=== PATIENT | female | born 1965 | race Caucasian/White ===

== ENCOUNTER 2019-11-21 00:31 | Day surgery (SDC) | payer BC, SELFPAY ==
[2019-11-14 13:20] VITALS: BMI 26.9
[2019-11-21 12:34] VITALS: BP 139/92; PULSE 76; RESP 16; TEMP 36.6; O2SAT 100
[2019-11-21] MEDS: LACTATED RINGERS 1,000 ML 150 ML IV CONT (12:50)
--- NOTE | 2019-11-21 13:00 | WPDANESEPPF ---
Anes - Initial Pre Proc Eval Procedure: Operation Date: 11/21/19 13:30 Proposed Procedures p Screening Colonoscopy - Osiel Charles MD Date/Time: 11/21/19 13:00 Surgeon: Osiel Charles MD Pre Op Diagnosis: Hx Of Polyps Patient Data Age: 54 Gender: F Height: 5 ft 7 in Weight: 76.7 kg Last Vital Signs Temp 36.6 C 11/21/19 12:34 Pulse 76 11/21/19 12:34 Resp 16 11/21/19 12:34 BP 139/92 H 11/21/19 12:34 Pulse Ox 100 11/21/19 12:34 Allergies Allergy/AdvReac Type Severity Reaction Status Date / Time No Known Allergies Allergy Unverified 11/21/19 12:33 Home Medications Medication Instructions Recorded Confirmed Type clonazepam 0.5 mg tablet 0.5 mg PO DAILY 10/23/19 History enalapril maleate 10 mg tablet 10 mg PO DAILY #1 tablet 10/23/19 Rx hydrochlorothiazide 25 mg tablet 25 mg PO DAILY 10/23/19 History peg 3350-electrolytes 236 240 ml PO Q10M #4000 ml 10/23/19 Rx gram-22.74 gram-6.74 gram-5.86 gram solution pravastatin 40 mg tablet 40 mg PO DAILY #1 tablet 10/23/19 Rx Patient hx anesthesia problems: none Family hx anesthesia problems: none PMFSH Past Medical History Medical History (Updated 11/21/19 @ 13:04 by Donald Pennington MD) HTN (hypertension) Hyperlipidemia Overweight Surgical History Surgical History (Updated 11/21/19 @ 13:05 by Donald Pennington MD) History of shoulder surgery History of total hip arthroplasty Social History Social History Gender identity (if verbalized by the patient): Female Anes - Eval Final PreProcedure Day of Procedure 11/21/19 13:00 Patient weight: overweight Heart: regular rate and rhythm Lungs: clear to auscultation Airway: Mallampati scale class II Neurological: alert and oriented Last oral intake: >/= 8 hours ASA classification: II Emergent: no Anesthetic plan: proceed Anesthesia type and monitoring: general GIVS and standard monitoring Informed Consent: The patient's anesthetic plan and its attendant risks and benefits were discussed with the patient/family/POA. Questions were solicited and answers provided to the satisfaction of the patient/family/POA.
--- NOTE | 2019-11-21 13:43 | PM.HPGS ---
History of Present Illness History of Present Illness Consent: Risks, benefits, and alternatives have been discussed and questions answered. Patient agrees to proceed with procedure. Chief complaint: Hx Of Polyps Narrative: Elizabeth Mcgrath is a 54 year old female with history of several polyps removed 2 years ago, here for follow up Review of Systems Constitutional: Constitutional: Denies headache(s) and Denies weakness Eyes: Eyes: Denies blurry vision ENT: Reports Normal hearing present, Denies headache(s) and Denies neck pain Cardiovascular: Cardiovascular: Denies chest pain and Denies dyspnea Respiratory: Respiratory: Denies dyspnea Gastrointestinal: Gastrointestinal: Reports no additional gastrointestinal complaints Genitourinary: Genitourinary: Denies dysuria Musculoskeletal: Musculoskeletal: Denies neck pain Integumentary/Breasts: Skin/Breast: Denies dry skin Neurologic: Reports Normal hearing present, Denies headache(s) and Denies weakness Psychiatric: Psychiatric: Denies anxiety Endocrine: Endocrine: Denies change in body appearance Hematologic/Lymphatic: Hematologic/Lymphatic: Denies easy bleeding Allergic/Immunologic: Allergic/Immunologic: Denies urticaria PMF Past Medical History Medical History (Updated 11/21/19 @ 13:44 by Osiel Charles MD) Adenomatous colon polyp HTN (hypertension) Hyperlipidemia Overweight Surgical History Surgical History (Updated 11/21/19 @ 13:05 by Donald Pennington MD) History of shoulder surgery History of total hip arthroplasty Social History Social History Gender identity (if verbalized by the patient): Female Meds Home Medications and Allergies Home Medications Medication Instructions Recorded Confirmed Type clonazepam 0.5 mg tablet 0.5 mg PO DAILY 10/23/19 History enalapril maleate 10 mg tablet 10 mg PO DAILY #1 tablet 10/23/19 Rx hydrochlorothiazide 25 mg tablet 25 mg PO DAILY 10/23/19 History peg 3350-electrolytes 236 240 ml PO Q10M #4000 ml 10/23/19 Rx gram-22.74 gram-6.74 gram-5.86 gram solution pravastatin 40 mg tablet 40 mg PO DAILY #1 tablet 10/23/19 Rx Allergies Allergy/AdvReac Type Severity Reaction Status Date / Time No Known Allergies Allergy Unverified 11/21/19 12:33 Vital Signs Vital Signs - 24 hr 11/21/19 12:34 Temperature 97.8 F Pulse Rate 76 Respiratory Rate 16 Blood Pressure 139/92 H Pulse Oximetry 100 Exam Const: General: comfortable and no acute distress HENMT: General nose exam: Normal nares present Eyes: General: appearance normal, both eyes and all related structures Neck: Neck: no JVD Resp: Auscultation: clear to auscultation bilaterally Cardio: Rate: regular rate Rhythm: regular rhythm GI: Inspection: non-distended GI Palp: Yes Soft to palpation Skin: General skin exam: normal color Neuro: General: gait normal Speech: normal speech Extrem: General: normal to inspection Psych: Mental Status: mental status grossly normal Assessment and Plan Assessment and plan (1) Adenomatous colon polyp: Code(s): D12.6 - Benign neoplasm of colon, unspecified Status: Acute Assessment and Plan: will proceed with colonoscopy (2) HTN (hypertension): Code(s): I10 - Essential (primary) hypertension Status: Acute
[2019-11-21 14:14] VITALS: BP 106/76; PULSE 87; RESP 18; O2SAT 99
[2019-11-21 14:24] VITALS: BP 125/89; PULSE 74; RESP 18; O2SAT 99
[2019-11-21 14:34] VITALS: BP 116/82; PULSE 77; RESP 18; O2SAT 99
== END 2019-11-21 14:58 | disposition home or self-care (01) ==
PROVIDERS: Visit Provider Internal Medicine Gastroenterology
PROC: 0DJD8ZZ Inspection of Lower Intestinal Tract, Via Natural or Artificial Opening Endoscopic (ICD-10-PCS; CPT 45378; principal; 2019-11-21 13:30)
DX: Z12.11 Encounter for screening for malignant neoplasm of colon (principal); D12.3 Benign neoplasm of transverse colon; K57.30 Diverticulosis of large intestine without perforation or abscess without bleeding; K64.8 Other hemorrhoids; I10 Essential (primary) hypertension; E78.5 Hyperlipidemia, unspecified
CPT/HCPCS: 45380; 88305; J2704; J7120

== ENCOUNTER 2021-03-18 10:00 | Emergency (ER) | payer BC, SELFPAY ==
[2021-03-18] VITALS (7 sets, daily range): BP systolic 129–167; BP diastolic 83–116; PULSE 75–116; RESP 13–21; TEMP 36.3; O2SAT 97–100
--- NOTE | ~2021-03-18 | XR_ITS ---
EXAMINATION: XR chest 2V EXAM DATE: 03/18/2021 10:33 INDICATION: Chest pain and shortness of breath and dizziness. TECHNIQUE: Frontal and lateral projections of the chest obtained and reviewed. Comparison is made to prior examination from 03/22/2012. FINDINGS: The lungs are clear. There are no pleural effusions. The cardiomediastinal silhouette is within normal limits. There is no pneumothorax suspected. The bones and soft tissues are unremarkab le. IMPRESSION: No acute cardiopulmonary findings. Reviewed, dictated and finalized at location B.
--- NOTE | 2021-03-18 10:11 | ECG_ITS ---
Measurements Intervals [place] Rate: 103 P: 16 WV: 148 QRS: -4 QRSD: 90 T: 1 QT: 325 QTc: 427 Interpretive Statements SINUS TACHYCARDIA BORDERLINE R WAVE PROGRESSION, ANTERIOR LEADS INFERIOR INFARCT, AGE INDETERMINATE ABNORMAL ECG Electronically Signed On 03-18-2021 15:52:40 CDT by Sixto Hernandez D.O.
[2021-03-18 10:42] LABS: Basophils Absolute Auto 0.1 K/mm3 (0.0-0.1); Basophils Percent Auto 0.6 % (0.2-1.2); Eosinophils Absolute Auto 0.2 K/mm3 (0-0.3); Eosinophils Percent Auto 1.8 % (0-4.4); Hematocrit 40.3 % (37.0-47.0); Hemoglobin 13.3 g/dL (12.0-15.0); Immature Granulocyte Absolute 0.02 K/mm3 (0.00-0.031); Immature Granulocyte Percent A 0.2 % (0-0.5); Lymphocytes Absolute Auto 2.29 K/mm3 (0.9-3.2); Lymphocytes Percent Auto 27.4 % (18.3-44.2); Mean Platelet Volume 9.3 fl (7.4-10.4); Monocytes Absolute Auto 0.3 K/mm3 (0.1-0.6); Monocytes Percent Auto 4.1 % (2.6-8.5); Neutrophils Absolute Auto 5.5 K/mm3 (1.3-6.7); Neutrophils Percent Auto 65.9 % (45.5-73.1); Platelet Count Result 448 k/mm3 (150-375); Red Blood Count 4.58 M/mm3 (4.2-5.4); Red Cell Distribution Width 13.3 % (11.5-14.5); White Blood Count 8.4 K/mm3 (4.5-10.0)
[2021-03-18 10:56] LABS: Anion Gap 15 mmol/L (8-16); Blood Urea Nitrogen 29 mg/dL (7-17); Calcium 10.3 mg/dL (8.4-10.2); Carbon Dioxide 19 mmol/L (22-30); Chloride 107 mmol/L (98-107); Estimated CRCL calculation 34 ml/min; Estimated Glomerular Filt Rate 33; Glucose 117 mg/dL (65-105); Potassium 5.1 mmol/L (3.4-5.0); Sodium 141 mmol/L (137-145)
[2021-03-18 11:06] LABS: Troponin I < 0.012 ng/mL (0.000-0.034)
[2021-03-18] MEDS: ASPIRIN 81 MG CHEWABLE TABLET 324 MG PO (11:31)
[2021-03-18 12:23] LABS: INR 1.1; Partial Thromboplastin Time 24.7 SECONDS (22.3-36.8); Prothrombin Time 14.5 Seconds (11.1-14.7)
--- NOTE | 2021-03-18 13:15 | PC.NURSE ---
Pt requesting pain medication for h/a. EDP Dr Flanagan made aware.
[2021-03-18 13:28] LABS: Amphetamine Screen Urine Negative (Negative); Barbiturate Screen Urine Negative (Negative); Benzodiazepines Screen Urine Negative (Negative); Cannabinoid Screen Urine Negative (Negative); Cocaine Screen Urine Negative (Negative); Methadone Screen Urine Negative (Negative); Opiate Screen Urine Negative (Negative); Phencyclidine Screen Urine Negative (Negative)
[2021-03-18] MEDS: HALOPERIDOL LACTATE 5 MG/ML VIAL IV PUSH (13:42)
[2021-03-18] MEDS: diphenhydrAMINE HCl INJ 50 MG/ML VIAL 25 MG IV PUSH (13:42)
[2021-03-18 13:57] LABS: Troponin I < 0.012 ng/mL (0.000-0.034)
--- NOTE | 2021-03-18 13:59 | ED.GENADULT ---
HPI - General Adult General Chief complaint: Unspecified Stated complaint: chest pain, chills Time Seen by Provider: 03/18/21 12:24 Source: patient Mode of arrival: ambulatory Limitations: no limitations History of Present Illness HPI narrative: 55-year-old female Presents with a number of complaints She is experiencing chest pain and a shaky feeling She feels tingly all over and like her toes are numb She has a posterior headache dizziness She reports that she was hospitalized at [facility] for recently for similar issues, discharged March 06, and feels like she is just never gotten better, that nobody figured out what was wrong with her, and that nobody is doing anything for her. She is supposed to be followed up with a stress test and a neurology appointment as outpatients which were arranged at the time of her discharge She says that at that time she was taken to the hospital by EMS because of chest pain She says that once there she was awake and alert to everything but could not move her body She continues that she was admitted to the ICU for a day and a half but to the best of her recollection all that happened was people came in and out of the room to check on her, and that it was only after she was moved out to a floor that she was able to again start moving around She is not aware of any diagnostic testing or therapeutic measures which were taken during the hospitalization Got the records from [place] and reviewed them It looks like part of the initial assessment was that she might have overdosed on Xanax and Klonopin but subsequently it looks like it was clarified that they thought she maybe only took 1 extra Xanax tablet Looking at the nurse's notes it looks like she was volitional and that she would keep her eyes tightly closed but was nonverbal She had a head CT and abdominal CT and labs which were unremarkable She was also seen by psych and they made no diagnosis In the ED she both received fluids for hypotension and at some point received hydralazine the ordering is unclear to me Ultimately appears that her symptoms were chalked up to complex migraines Related Data Home Medications Medication Instructions Recorded Confirmed clonazepam 0.5 mg tablet 0.5 mg PO DAILY 10/23/19 hydrochlorothiazide 25 mg tablet 25 mg PO DAILY 10/23/19 Allergies Allergy/AdvReac Type Severity Reaction Status Date / Time No Known Allergies Allergy Unverified 11/21/19 12:33 Review of Systems Constitutional: Constitutional: Denies chills, Reports fatigue, Denies fever(s), Reports headache(s), Reports lethargy, Reports malaise, Reports poor appetite and Reports weakness Eyes: Eyes: Reports no additional eye complaints and Denies change in vision ENT: Reports dizziness, Reports headache(s) and Denies sore throat Cardiovascular: Cardiovascular: Reports chest pain Respiratory: Respiratory: Denies cough and Denies dyspnea Gastrointestinal: Gastrointestinal: Denies abdominal pain, Denies diarrhea, Reports nausea and Denies vomiting Genitourinary: Genitourinary: Denies urinary frequency and Denies dysuria Musculoskeletal: Musculoskeletal: Reports myalgias, Denies deformity, Denies arthralgias, Denies joint swelling and Reports numbness Integumentary/Breasts: Skin/Breast: Denies rash and Denies wounds Neurologic: Reports headache(s), Denies focal weakness, Reports numbness, Reports paresthesias and Reports tremor(s) Psychiatric: Psychiatric: Reports no additional psychiatric complaints Endocrine: Endocrine: Reports no additional endocrine complaints Hematologic/Lymphatic: Hematologic/Lymphatic: Reports no additional hematologic/lymphatic complaints Allergic/Immunologic: Allergic/Immunologic: Reports no additional allergic/immunologic complaints [facility] Past Medical History Medical History (Updated 03/18/21 @ 15:54 by Terry Flanagan MD) Adenomatous colon polyp HTN (hypertension) Hyperlipidemia Overwei
[2021-03-18 16:15] LABS: Parathyroid Intact 72.7 pg/mL (7.5-53.5)
== END 2021-03-18 16:16 | disposition home or self-care (01) ==
PROVIDERS: Emergency Medicine; Emergency Provider Emergency Medicine; PCP Family Medicine Sports Medicine
DX: R42 Dizziness and giddiness (principal); R20.2 Paresthesia of skin; R51.9 Headache, unspecified; Z86.010 Personal history of colon polyps; E78.5 Hyperlipidemia, unspecified; I10 Essential (primary) hypertension; E66.3 Overweight; Z68.25 Body mass index [BMI] 25.0-25.9, adult; Z96.649 Presence of unspecified artificial hip joint; R00.0 Tachycardia, unspecified; R94.31 Abnormal electrocardiogram [ECG] [EKG]
CPT/HCPCS: 36415; 71046; 80048; 80307; 82384; 83970; 84443; 84484; 85025; 85610; 85730; 93005; 96374; 96375; 99284; A9270; J1200; J1630

== ENCOUNTER 2022-09-02 13:07 | Outpatient (CLI) | payer BC, SELFPAY ==
--- NOTE | ~2022-09-02 | XR_ITS ---
XR lumbar spine 2-3V DATE: 09/02/2022 13:29 INDICATION: Low back pain TECHNIQUE: AP, lateral, coned lateral lumbosacral views COMPARISON: None FINDINGS: Moderate degenerative disc disease at T11-12. The included lower thoracic and lumbar pedicles are int act. No fracture or bone destruction of the lumbar spine. Normal alignment. No spondylolisthesis. There is moderately severe degenerative disc disease at L5-S1. The lumbar interspaces are well preser jacquie. The sacroiliac joints appear normal. Prominent callus is noted at a posterior right 10th rib fracture IMPRESSION: Moderately severe degenerative disease at L5-S1 Status post left total hip arthroplasty Reviewed, dictated and finalized at location B. CODERS
[2022-09-02 13:59] LABS: Hematocrit 37.7 % (37.0-47.0); Hemoglobin 12.1 g/dL (12.0-15.0); Mean Corpuscular HGB Conc 32.1 g/dl (32-36); Mean Corpuscular Volume 93.3 fl (80-100); Platelet Count Result 390 k/mm3 (150-375); Red Blood Count 4.04 M/mm3 (4.2-5.4); White Blood Count 7.6 K/mm3 (4.5-10.0)
[2022-09-02 14:07] LABS: Appearance Urine Clear (Clear); Bilirubin Urine Negative (Negative); Blood Urine Negative (Negative); Color Urine Yellow (Yellow); Glucose Urine UA Negative (Negative); Ketones Urine Negative (Negative); Leukocyte Esterase Ur 2+ LEU/UL (Negative); Nitrate Urine Negative (Negative); Protein Urine Negative (Negative); Urobilinogen Urine 0.2 mg/dL (<2.0); pH Urine 5.5 (5.0-9.0)
[2022-09-02 14:13] LABS: Hemoglobin A1C 5.1 % (<5.7)
[2022-09-02 14:24] LABS: Bacteria Urine 2+ /hpf; Mucus Urine Rare /lpf; Squamous Epithelial Cell Urine Rare /hpf (Few); WBC Urine 31-50 /hpf
[2022-09-02 14:33] LABS: Alanine Aminotransferase 22 U/L (6-35); Albumin Level 4.8 g/dL (3.5-5.1); Alkaline Phosphatase 56 U/L (38-126); Anion Gap 12 mmol/L (8-16); Aspartate Amino Transferase 26 U/L (14-36); Bilirubin,Total 0.4 mg/dL (0.2-1.3); Blood Urea Nitrogen 24 mg/dL (7-17); Calcium 9.9 mg/dL (8.4-10.2); Carbon Dioxide 29 mmol/L (22-30); Chloride 97 mmol/L (98-107); Cholesterol 269 mg/dL (0-200); Estimated Glomerular Filt Rate 51; Glucose 92 mg/dL (65-110); HDL Direct 60 mg/dL; Potassium 3.9 mmol/L (3.4-5.0); Sodium 138 mmol/L (137-145); Triglycerides 235 mg/dL (<150)
[2022-09-02 14:42] LABS: Add Urine Microscopic? YES
[2022-09-02 14:43] LABS: LDL Cholesterol Direct 132 mg/dL
[2022-09-08 10:36] LABS: Vitamin D 1,25 (OH)2 Total 14 pg/mL (18-72); Vitamin D2 1,25 (OH)2 <8 pg/mL; Vitamin D3 1,25 (OH)2 14 pg/mL
== END 2022-09-02 13:08 | disposition home or self-care (01) ==
PROVIDERS: PCP Internal Medicine; Visit Provider Internal Medicine
DX: Z00.00 Encounter for general adult medical examination without abnormal findings (principal); I10 Essential (primary) hypertension; G62.9 Polyneuropathy, unspecified; F41.9 Anxiety disorder, unspecified; M54.50 Low back pain, unspecified; G89.29 Other chronic pain
CPT/HCPCS: 36415; 72100; 80053; 80061; 81001; 82306; 82607; 82652; 83036; 84443; 85027; 87077; 87086; 87186

== ENCOUNTER 2022-09-23 08:02 | Outpatient (CLI) | payer BC, SELFPAY ==
--- NOTE | ~2022-09-23 | MR_ITS ---
EXAMINATION: MR lumbar spine wo con DATE: 09/23/2022 08:50 INDICATION: Severe low back pain. TECHNIQUE: Magnetic resonance imaging (MRI) of the lumbar spine was performed without intravenous con trast. Sequences included sagittal T2-weighted FSE, sagittal T2-weighted FS FSE, sagittal T1-weighted FSE, and axial T2-weighted FSE. COMPARISON: Lumbar spine radiograph 09/02/2022. FINDINGS: There is 4 degrees levocurvature of lumbar spine. Vertebral body heights are normal. There is mildly decreased disc height at T11-T12 and moderately decreased disc height at L5-S1 with endplat e remodeling. The distal spinal cord signal intensity is normal. The conus medullaris is at L2. The f ollowing disc levels are specifically discussed: L1-L2: The disc does not extend beyond the endplate margin. There is mild bilateral facet joint osteo arthritis. There is no neural foraminal stenosis. There is no central canal stenosis. L2-L3: The disc does not extend beyond the endplate margin. There is mild bilateral facet joint osteo arthritis. There is no neural foraminal stenosis. There is no central canal stenosis. L3-L4: The disc is bulging. There is moderate bilateral facet joint osteoarthritis. There is mild albina ateral neural foraminal stenosis. There is no central canal stenosis. L4-L5: The disc is bulging and has an annular fissure. There is mild bilateral facet joint osteoarthr itis. There is mild bilateral neural foraminal stenosis. There is mild central canal stenosis. L5-S1: The disc is bulging and has an annular fissure. There is mild bilateral facet joint osteoarthr itis. There is moderate right and mild left neural foraminal stenosis. There is mild central canal st enosis. IMPRESSION: 1. Moderate lower lumbar spondylosis. Reviewed, dictated and finalized at location A. [facility] INFLATED BALL
== END 2022-09-23 08:03 | disposition home or self-care (01) ==
PROVIDERS: PCP Internal Medicine; Visit Provider Internal Medicine
DX: M51.36 Other intervertebral disc degeneration, lumbar region (principal); M47.896 Other spondylosis, lumbar region
CPT/HCPCS: 72148

== ENCOUNTER 2022-11-29 13:17 | Outpatient (CLI) | payer BC, SELFPAY ==
[2022-12-01 20:20] LABS: PCP NEGATIVE ng/mL (<25)
[2022-12-06 11:13] LABS: Amphetamines Negative; Barbiturates Negative; Benzodiazepines Positive; Cocaine Metabolites Negative; Marijuana Metabolites Negative
== END 2022-11-29 13:18 | disposition home or self-care (01) ==
LOC: ANHLAB 13:19
PROVIDERS: PCP Internal Medicine; Visit Provider Internal Medicine
DX: Z79.899 Other long term (current) drug therapy (principal)
CPT/HCPCS: 80307

== ENCOUNTER 2023-02-17 03:29 | Day surgery (SDC) | payer BC, SELFPAY ==
[2023-02-02 11:00] VITALS: BMI 25.5
[2023-02-17 12:28] VITALS: BP 114/96; PULSE 74; RESP 18; TEMP 36.3; O2SAT 100; BMI 27.0
[2023-02-17] MEDS: LACTATED RINGERS 1,000 ML 150 ML IV CONT (12:37)
--- NOTE | 2023-02-17 12:41 | PM.HPGS ---
History of Present Illness History of Present Illness Consent: Risks, benefits, and alternatives have been discussed and questions answered. Patient agrees to proceed with procedure. Chief complaint: hx colon polyps Narrative: Elizabeth cMgrath is a 57 year old female with colon polyps in 2019 Review of Systems Constitutional: Constitutional: Denies headache(s) and Denies weakness Eyes: Eyes: Denies blurry vision ENT: Reports Normal hearing present, Denies headache(s) and Denies neck pain Cardiovascular: Cardiovascular: Denies chest pain and Denies dyspnea Respiratory: Respiratory: Denies dyspnea Gastrointestinal: Gastrointestinal: Reports no additional gastrointestinal complaints Genitourinary: Genitourinary: Denies dysuria Musculoskeletal: Musculoskeletal: Denies neck pain Integumentary/Breasts: Skin/Breast: Denies dry skin Neurologic: Reports Normal hearing present, Denies headache(s) and Denies weakness Psychiatric: Psychiatric: Denies anxiety Endocrine: Endocrine: Denies change in body appearance Hematologic/Lymphatic: Hematologic/Lymphatic: Denies easy bleeding Allergic/Immunologic: Allergic/Immunologic: Denies urticaria PMFSH Past Medical History Medical History (Updated 01/05/23 @ 10:17 by Tiff Serna MD) Adenomatous colon polyp Anxiety disorder Chronic low back pain HTN (hypertension) Hyperlipidemia Lumbar degenerative disc disease Osteoarthritis Overweight Peripheral neuropathy Surgical History Surgical History History of appendectomy History of arthroplasty of right knee History of shoulder surgery History of total hip arthroplasty Family History Family History Mother Hypertension Cerebrovascular accident Diabetes mellitus Depression Father Diabetes mellitus Hypertension Sibling Thyroid cancer Social History Social History Smoking status: Never smoker Alcohol intake: current Alcohol use details: occasional Substance use: never Substance use type: does not use Lack of Transportation: No Lack of Food: Never True Current Housing: I Have Housing Concerned About Future Housing: No Difficulty Paying Gas/Electric Bills: No Difficulty Paying for Meds: No Currently Unemployed: No Education: High School Diploma/GED Difficulty w/ Childcare or Family Care: No Living arrangements: with family Occupation/Education: occupation 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 Gender identity (if verbalized by the patient): Female Spiritual care concerns: No Meds Home Medications and Allergies Home Medications Medication Instructions Recorded Confirmed Type cyanocobalamin (vitamin B-12) 1,000 mcg PO BID #60 caps 11/25/22 02/17/23 Rx 1,000 mcg capsule ergocalciferol (vitamin D2) 1,250 1,250 mcg PO WEEKLY #12 caps 11/25/22 02/17/23 Rx mcg (50,000 unit) capsule celecoxib 200 mg capsule (Celebrex) 200 mg PO DAILY #30 caps 12/14/22 02/17/23 Rx enalapril maleate 10 mg tablet 10 mg PO DAILY 02/02/23 02/17/23 History hydrochlorothiazide 25 mg tablet 25 mg PO DAILY 02/02/23 02/17/23 History alprazolam 0.5 mg tablet (Xanax) 0.25 mg PO BID PRN anxiety #30 tabs 02/08/23 02/17/23 Rx hydrocodone 5 mg-acetaminophen 325 1 tablet PO Q8H PRN pain #70 tabs 02/08/23 02/17/23 Rx mg tablet Allergies Allergy/AdvReac Type Severity Reaction Status Date / Time escitalopram [From Lexapro] Allergy Rash Verified 02/17/23 12:27 Vital Signs Vital Signs - 24 hr 02/17/23 12:28 Temperature 97.4 F L Pulse Rate 74 Respiratory Rate 18 Blood Pressure 114/96 H Pulse Oximetry 100 Oxygen Delivery Room Air Exam Const: General: comfortable and no acute distress HENMT: Face/Nose/Sinus: Normal nares present Eyes: General: appearance normal, both eyes and all rel
--- NOTE | 2023-02-17 12:45 | WPDANESEPPF ---
Anes - Initial Pre Proc Eval Procedure: Operation Date: 02/17/23 13:45 Proposed Procedures p Colonoscopy - Osiel Charles MD Date/Time: 02/17/23 12:45 Surgeon: Osiel Charles MD Pre Op Diagnosis: hx colon polyps Patient Data Age: 57 Gender: F Height: 1.7 m Weight: 78.3 kg Last Vital Signs Temp 97.4 F L 02/17/23 12:28 Pulse 74 02/17/23 12:28 Resp 18 02/17/23 12:28 BP 114/96 H 02/17/23 12:28 Pulse Ox 100 02/17/23 12:28 O2 Del Method Room Air 02/17/23 12:28 Allergies Allergy/AdvReac Type Severity Reaction Status Date / Time escitalopram [From Lexapro] Allergy Rash Verified 02/17/23 12:27 Home Medications Medication Instructions Recorded Confirmed Type cyanocobalamin (vitamin B-12) 1,000 mcg PO BID #60 caps 11/25/22 02/17/23 Rx 1,000 mcg capsule ergocalciferol (vitamin D2) 1,250 1,250 mcg PO WEEKLY #12 caps 11/25/22 02/17/23 Rx mcg (50,000 unit) capsule celecoxib 200 mg capsule (Celebrex) 200 mg PO DAILY #30 caps 12/14/22 02/17/23 Rx enalapril maleate 10 mg tablet 10 mg PO DAILY 02/02/23 02/17/23 History hydrochlorothiazide 25 mg tablet 25 mg PO DAILY 02/02/23 02/17/23 History alprazolam 0.5 mg tablet (Xanax) 0.25 mg PO BID PRN anxiety #30 tabs 02/08/23 02/17/23 Rx hydrocodone 5 mg-acetaminophen 325 1 tablet PO Q8H PRN pain #70 tabs 02/08/23 02/17/23 Rx mg tablet Patient hx anesthesia problems: none Family hx anesthesia problems: none Results Review: All pre-operative results and documents have been reviewed as part of the pre-operative evaluation. [facility] Past Medical History Medical History (Updated 01/05/23 @ 10:17 by Tiff Serna MD) Adenomatous colon polyp Anxiety disorder Chronic low back pain HTN (hypertension) Hyperlipidemia Lumbar degenerative disc disease Osteoarthritis Overweight Peripheral neuropathy Surgical History Surgical History History of appendectomy History of arthroplasty of right knee History of shoulder surgery History of total hip arthroplasty Family History Family History Mother Hypertension Cerebrovascular accident Diabetes mellitus Depression Father Diabetes mellitus Hypertension Sibling Thyroid cancer Social History Social History Smoking status: Never smoker Alcohol intake: current Alcohol use details: occasional Substance use: never Substance use type: does not use Lack of Transportation: No Lack of Food: Never True Current Housing: I Have Housing Concerned About Future Housing: No Difficulty Paying Gas/Electric Bills: No Difficulty Paying for Meds: No Currently Unemployed: No Education: High School Diploma/GED Difficulty w/ Childcare or Family Care: No Living arrangements: with family 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/Education: 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 Informed Consent: The patient's anesthetic plan and its attendant risks and benefits were discussed with the patient/family/POA. Questions were solicited and answers provided to the satisfaction of the patient/family/POA.
[2023-02-17 13:07] VITALS: BP 121/83; PULSE 82; RESP 22; O2SAT 99
[2023-02-17 13:17] VITALS: BP 113/76; PULSE 70; RESP 19; O2SAT 98
[2023-02-17 13:27] VITALS: BP 121/84; PULSE 67; RESP 16; O2SAT 100
== END 2023-02-17 13:32 | disposition home or self-care (01) ==
PROVIDERS: PCP Family Medicine; Visit Provider Internal Medicine Gastroenterology
PROC: 0DJD8ZZ Inspection of Lower Intestinal Tract, Via Natural or Artificial Opening Endoscopic (ICD-10-PCS; CPT 45378; principal; 2023-02-17 13:45)
DX: Z12.11 Encounter for screening for malignant neoplasm of colon (principal); K57.30 Diverticulosis of large intestine without perforation or abscess without bleeding; K63.5 Polyp of colon; K64.8 Other hemorrhoids; I10 Essential (primary) hypertension; E78.5 Hyperlipidemia, unspecified; F41.1 Generalized anxiety disorder; M19.90 Unspecified osteoarthritis, unspecified site
CPT/HCPCS: 45385; 88305; J2704; J7120

== ENCOUNTER 2025-03-19 18:37 | Emergency (ER) | payer BC, SELFPAY ==
--- NOTE | ~2025-03-19 | CT_ITS ---
CT abdomen pelvis w con Ordering provider: Mariely Collins PA-C History: 59 years Female with . abd pain, hx diverticulitis . Comparison: August 03, 2012 Technique: CT abdomen and pelvis with IV and without oral contrast. Automated exposure control and it erative reconstruction technique were employed. The dose-length product was 670.09 mGy-cm. 100 mL Omn ipaque 350 was given IV. Findings: VISUALIZED LOWER CHEST: Dependent atelectatic changes. UPPER ABDOMINAL ORGANS: Liver: Normal. Gallbladder: Normal. Spleen: Normal. Stomach/duodenum: Normal. Pancreas: Normal. Slightly prominent pancreatic duct. Adrenals: Slightly prominent left adrenal gland unchanged Kidneys: lobation is noted bilaterally. Tiny cyst in the right kidney lower pole. PELVIC ORGANS: The bladder is underfilled with thickened wall. Evaluation for cystitis advised. BOWEL AND MESENTERY: Colon: No evidence of diverticulitis. Increased vascularity is seen around the colon. Evaluation for inflammatory bowel disease should be considered. Appendix is not demonstrated.. Small Bowel: Normal. No obstruction. Peritoneum/mesentery: No free air or free fluid. No mesenteric lymphadenopathy. RETROPERITONEUM: Mild atheromatous disease of the abdominal aorta. No retroperitoneal lymphadenopat hy. MUSCULOSKELETAL: Superficial soft tissues: Inguinal lymph nodes are seen with the largest in the right side measuring 1.4 cm. Otherwise, The superficial soft tissues are normal. Bones: Healing fractures in the right eighth, ninth and 10th ribs. Age appropriate degenerative connolly es of the spine. Left hip arthroplasty. IMPRESSION: 1. No evidence of appendicitis, diverticulitis or intestinal obstruction. 2. Slight increased vascularity around the colon. Possibility of inflammatory bowel disease should b e considered. 3. Thickened wall of the urinary bladder. Evaluation for cystitis is advised. Reviewed, dictated and finalized at location A. IMPRESSION: 1. No evidence of appendicitis, diverticulitis or intestinal obstruction. 2. Slight increased vascularity around the colon. Possibility of inflammatory bowel disease should be considered. 3. Thickened wall of the urinary bladder. Evaluation for cystitis is advised.
--- OUTSIDE RECORDS SUMMARY | 2025-03-19 18:40 | XMS_ITS | Clinical Summary ---
Author Organization [facility] Address [address] [place] [address] Phone Care Team Providers Care Back Roller Name Role Phone Terry Garland MD Unavailable Javon Huerta MD Unavailable Allergies No known active allergies Medications enalapril (VASOTEC) 10 MG TabletIndications :Essential hypertension TAKE ONE TABLET BY MOUTH EVERY DAY 90 Tab 3 8 Active hydroCHLOROthiazi de 25 MG TabletIndications :Essential hypertension TAKE ONE TABLET BY MOUTH EVERY DAY 90 Tab 3 9 Active ALPRAZolam (XANAX) 0.5 MG Tablet TAKE 1/2 (ONE-HALF) TABLET BY MOUTH TWICE DAILY NEEDED FOR ANXIETY 3 Active HYDROcodone-aceta minophen (NORCO) 5-325 MG Tablet Take 1 Tablet by mouth every 4 hours as needed. Active Cyanocobalamin (VITAMIN B-12 PO) Take by mouth. Active Active Problems Problem Noted Date Diagnosed Date Subacromial impingement of left shoulder 019 Pre-op examination 10/25/2018 Primary osteoarthritis of left hip 10/25/2018 Pain of left hip joint 09/24/2018 Physical exam, annual (Adult) 09/24/2018 Anxiety 09/24/2018 Pure hypercholesterolemia 09/24/2018 Screening for breast cancer 09/24/2018 Hypertension Asthma Arthritis Immunizations Immunization Administration Dates Next Due Influenza Vaccine, Quadrivalent, PF 09/24/2018 Influenza, Injectable, Quadrivalent 08/10/2015 Family History Medical History Relation Name Comments Hypertension Father Stroke Father Diabetes Mother Stroke Mother Cancer Sister lymph nodes Relation Name Status Comments Father Alive Mother Sister Social History Tobacco Use Types Packs/Day Years Used Date Smoking Tobacco: Never Smokeless Tobacco: Never Tobacco Cessation:Counseling Given: Yes Alcohol Use Standard Drinks/Week Comments Yes 1 (1 standard drink = 0.6 oz pur e alcohol) socially PHQ-2 Answer Date Recorded Total Score - Questions 1-9 5 04/15 Education Answer Date Recorded What is the highest level of school you have completed or the highest degree you have received? Some college, no degree 04/25/2023 Sexually Active Control Partners Comments Yes Post-menopausal Male Comments No Sex and Gender Information Value Date Recorded Sex Assigned at Not on file Legal Sex Female 12:31 PM CDT Gender Identity Not on file Sexual Orientation Not on file Last Filed Vital Signs Vital Sign Reading Time Taken Comments Blood Pressure 122/66 04/25/2023 10:43 AM CDT Pulse 81 04/25/2023 10:43 AM CDT Temperature 36.7 C (98 F) 04/25/2023 10:43 AM CDT Respiratory Rate 18 04/25/2023 10:43 AM CDT Oxygen Saturation 100% 04/25/2023 10:43 AM CDT Inhaled Oxygen Concentration - - Weight 77.7 kg (171 lb 4.8 oz) 04/25/2023 10:43 AM CDT Height 170.2 cm (5' 7) 04/25/2023 10:43 AM CDT Body Mass Index 26.83 04/25/2023 10:43 AM CDT Plan of Treatment Health Maintenance Due Date Last Done Comments Hepatitis C Virus (HCV) Screening 1963 Mammogram 1963 TdaP Immunization 1963 Pneumococcal Immunization (5 0+ years) (1 of 2 - PCV) 1982 Cologuard 2013 Immunochemical Fecal Occult Blood 2013 Zoster Immunization (1 of 2) 2013 Pap Smear 07/27/2018 07/27/2015, 07/27/2015 Colonoscopy 05/01/2019 05/01/2018 Colorectal Cancer Screening 05/01/2019 Cervical Cancer Screening (CCS) 07/27/2020 HPV/Cotest 07/27/2020 07/27/2015 Respiratory Syncytial Virus (RSV) Immunization (Adult) (1 - Risk 60-74 years 1-dose series) 2023 SARS-COV-2 Immunization ( season) 2024 Influenza Immunization (Seas on Ended) 2025 09/24/2018, 08/10/2015 05/01/2018 Hepatitis B Immunization Aged Out No longer eligible based on patient's age to complete this topic Human Papillomavirus (HPV) Immunization Aged Out No longer eligible b ased on patient's age to complete this topic Meningococcal Immunization (ACWY) Aged Out No longer eligible b ased on patient's age to complete this topic Rotavirus Immunization Aged Out No lo nger eligible based on patient's age to complete this topic Procedures Procedure Name Priority Date/Time Associated Diagnosis Comments HUMAN PAPILLOMA VIRUS (HPV) 07/27/2015 12:00 AM CDT PATHOLOGY CYTOLOGY NUCLEAR MEDICINE TECH Routine 07/27/2015 from Last 3 Months or Most Recently Relevant to Health Maintenance Results * PATHOLOGY CYTOLOGY NUCLEAR MEDICINE TECH (07/27/2015) Specimen of unknown material (specimen) Terry Garland MD PATHOLOGY/CYTOLOGY ORD ERABLES Final Result * HUMAN PAPILLOMA VIRUS (HPV) (07/27/2015 12:00 AM CDT) 07/27/2015 us Terry Garland MD LAB SEND OUTS Final Result [facility] from Last 3 Months or Most Recently Relevant to Health Maintenance Insurance [facility] Care Teams Back Roller Relationship Specialty Start Date End Date Terry Garland MD Obstetrics & Gynecology 05/23/17 Javon Huerta MD Orthopaedic Surgery 05/23/17
--- OUTSIDE RECORDS SUMMARY | 2025-03-19 18:40 | XMS_ITS | Clinical Summary ---
Author Organization [facility] Address [address] [place] [address] Care Team Providers Care Turn Down Worker Name Role Phone Otto Astudillo Md, MD Primary Care Provider Unavailable Source Comments [facility],non-owned Affiliates and Associated Physician Practices is amultiple site organization consisting of ambulatory clinics and hospital sitesin [place], [place], [place] and [place]. This disclosure is being madepursuant to the Care Everywhere program and may not contain all information available regarding this patient. Last updated 18.[facility] Allergies No known active allergies Medications * Be aware that medications may not be up to date on this document. Alwaysverify current medications with the patient. 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 (F LUZONE; FLULAVAL; FLUARIX; AFLURIA QUADRIVALENT; 6MO+), 0.5 ML (IIV4) 09/24/2018 Family History Medical History Relation Name Comments Cancer Sister Relation Name Status Comments Sister Social History Tobacco Use Types Packs/Day Years Used Date Smoking Tobacco: Never Smokeless Tobacco: Never Alcohol Use Standard Drinks/Week Comments Yes 0 (1 standard drink = 0.6 oz pur e alcohol) occ Comments No Sex and Gender Information Value Date Recorded Sex Assigned at Not on file Legal Sex Female 12:56 PM MISSILE PAD MECHANIC Gender Identity Not on file Sexual Orientation Not on file Last Filed Vital Signs Vital Sign Reading Time Taken Comments Blood Pressure 104/63 11/13/2018 12:50 PM MISSILE PAD MECHANIC Pulse 83 11/13/2018 12:50 PM MISSILE PAD MECHANIC Temperature 37.6 C (99.7 F) 11/13/2018 12:50 PM MISSILE PAD MECHANIC Respiratory Rate 18 11/13/2018 12:50 PM MISSILE PAD MECHANIC Oxygen Saturation 98% 11/13/2018 12:50 PM MISSILE PAD MECHANIC Inhaled Oxygen Concentration - - Weight 77.1 kg (170 lb) 05/03/2022 12:39 PM CDT Height 170.2 cm (5' 7) 05/03/2022 12:39 PM CDT Body Mass Index 26.63 05/03/2022 12:39 PM CDT Plan of Treatment Health Maintenance Due Date Last Done Comments COLOGUARD (AGES 45-75) - COLON CA SCREENING 1963 COLON MONITORING 1963 COLONOSCOPY - COLON CA SCREENING 1963 CT COLONOGRAPHY - COLON CA SCREENING 1963 Colorectal Cancer Screening 1963 FIT - COLON CA SCREENING 1963 FLEX SIG - COLON CA SCREENING 1963 LIPID TESTING 1963 MAMMOGRAM 1963 Opioid Medication Agreement - Annual 1963 HIV SCREENING 1978 HEPATITIS C SCREENING 11/10/1981 DTAP/TDAP/TD VACCINES (1 - Tdap) 1982 PNEUMOCOCCAL VACCINE 50+ (1 of 2 - PCV) 1982 PAP with HPV 1993 ZOSTER VACCINE (1 of 2) 2013 SCREENING FOR DIABETES 05/03/2022 9, 10/24/2018, 06/26/2018, Additional history exists Respiratory Syncytial Virus (RSV) Vaccine Pt: or over 60 yrs (1 - Risk 60-74 years 1-dose series) 2023 COVID-19 VACCINE ( season) 2024 DEPRESSION SCREENING 10/16/2024 INFLUENZA VACCINE (Season Ended) 2025 09/24/2018, 08/10/2015 HEPATITIS B VACCINE Aged Out No longe r eligible based on patient's age to complete this topic HIB VACCINE Aged Out No longer eligi ble based on patient's age to complete this topic HPV VACCINE Aged Out No longer eligi ble based on patient's age to complete this topic MENINGOCOCCAL (Group B) VACCINE SHARED DECISION-MAKING Aged Out No longer eligible based on patient's age to complete this topic MENINGOCOCCAL GROUPS A/C/Y/W VACCINE Aged Out No longer eligible based on patient's age to complete this topic Medical Devices Implanted Type Area Senior Market Research Analyst Device Identifier Shelf Expiration Date Model / Serial / Lot Stem Tib 55mm 18mm Prfx Mtphsl Kn Implanted:Qty: 1 on 02/06/2017 by Javon Huerta MD at [facility] [employer] 09/21/2026 [id number] / / [id number] Legion Por Pettit Tib Base R Sz 5 Implanted:Qty: 1 on 02/06/2017 by Javon Huerta MD at [facility] [employer] 08/15/2023 [id number] / / [id number] Ins Tib 5-6 9mm Kn Xlpe Dsh Legion Implanted:Qty: 1 on 02/06/2017 by Javon Huerta MD at [facility] Right: Knee [employer] 06/26/2026 [id number] / / [id number] Cmpnt Fem Kn Rt 6 Crcte Rtn Legion Pettit Implanted:Qty: 1 on 02/06/2017 by Javon Huerta MD at [facility] Right: Knee [employer] 08/20/2026 [id number] / / [id number] Screw Bsplt 30mm 6.5mm Gns2 Kn Tib Por Implanted:Qty: 2 on 02/06/2017 by Javon Huerta MD at [facility] Right: Knee [employer] 12/04/2026 [id number] / / [id number] Screw Bsplt 15mm 6.5mm Gns2 Kn Tib Por Implanted:Qty: 1 on 02/06/2017 by Javon Huerta MD at [facility] Right: Knee [employer] 11/28/2025 [id number] / / [id number] Screw Bsplt 20mm 6.5mm Gns2 Kn Tib Por Implanted:Qty: 1 on 02/06/2017 by Javon Huerta MD at [facility] Right: Knee [employer] 12/04/2026 [id number] / / [id number] Andrew Basic Tee Excludes Agc Kn Implanted:Qty: 1 on 02/06/2017 by Javon Huerta MD at [facility] [employer] BILL ONLY BASIC TEE EXCLUDES AGC KN SNOR / / Shell Actb 52mm Hip 3 Hl Poly R3 Std Implanted:Qty: 1 on 11/12/2018 by Javon Huerta MD at [facility] Left: Hip [employer] 09/18/2028 [id number] / / [id number] Description:R3 HOLE ACET SHE LL 52MM--11/16 LG Screw 6.5mm 40mm Hip Actb Canc Sphrcl Implanted:Qty: 1 on 11/12/2018 by Javon Huerta MD at [facility] Left: Hip [employer] 07/09/2028 [id number] / / [id number] Description:REF SPHER HEAD S CREW 40MM--11/16 LG Liner Actb R3 20d 52mm 36mm Xlpe Poly Implanted:Qty: 1 on 11/12/2018 by Javon Huerta MD at [facility] Left: Hip [employer] 09/15/2028 [id number] / / [id number] Description:R3 20 DEG XLPE A CET LNR 36MM X 52MM--11/16 LG Polarstem Stem Stdti/Pettit 3 Non-Tee Implanted:Qty: 1 on 11/12/2018 by Javon Huerta MD at [facility] Left: Hip [employer] 08/13/2025 [id number] / / [id number] Description:Stem standars wi th Ti/PETTIT Head Fem +4mm 09/28 Tpr 36mm Hip Oxnm Implanted:Qty: 1 on 11/12/2018 by Javon Huerta MD at [facility] Left: Hip [employer] 09/15/2028 [id number] / / [id number] Description:OXINIUM FEM HD 1 11/29 36K MM M/+4--11/16 LG Andrew H1 Total Hip Implanted:Qty: 1 on 11/12/2018 by Javon Huerta MD at [facility] Left: Hip [employer] TOTAL HIP H1 / / Andrew Oxinium Upchrg Implanted:Qty: 1 on 11/12/2018 by Javon Huerta MD at [facility] Left: Hip [employer] OXINIUM UPCHG SNORTHO BILL ONLY / / Explanted Type Area Senior Market Research Analyst Device Identifier Shelf Expiration Date Model / Serial / Lot Screw Bsplt 25mm 6.5mm Gns2 Kn Tib Por Explanted:Qty: 1 on 02/06/2017 at [facility] Right: Knee [employer] 06/25/2026 [id number] / / [id number] Procedures Procedure Name Priority Date/Time Associated Diagnosis Comments BASIC METABOLIC PANEL (CALCIUM TOTAL) AM Draw 11/13/2018 5:24 AM MISSILE PAD MECHANIC from Last 3 Months or Most Recently Relevant to Health Maintenance Results * (ABNORMAL) BASIC METABOLIC PANEL (CALCIUM TOTAL) (11/13/2018 5:24 AM [facility]) Glucose 119(H) 74 - 106 mg/dL 11/13/2018 5:56 AM [facility] Sodium 142 136 - 145 mmol/L 11/13/2018 5:56 AM [facility] Potassium 3.6 3.5 - 5.1 mmol/L 11/13/2018 5:56 AM [facility] Chloride 107 98 - 107 mmol/L 11/13/2018 5:56 AM [facility] CO2 25 22 - 31 mmol/L 11/13/2018 5:56 AM [facility] Calcium 7.4(L) 8.5 - 10.1 mg/dL 11/13/2018 5:56 AM [facility] Anion Gap 10 8 - 16 mmol/L 11/13/2018 5:56 AM [facility] BUN 13 7 - 21 mg/dL 11/13/2018 5:56 AM [facility] Creatinine 0.64 0.50 - 1.30 mg/dL 11/13/2018 5:56 AM [facility] eGFR by MDRD >60 >60 mL/min/1.7 3m2 11/13/2018 5:56 AM [facility] eGFR by MDRD >60 >60 mL/min/1.7 3m2 11/13/2018 5:56 AM [facility] Blood BLOOD SPECIMEN / Unknown Lab Venipuncture / Unknown 11/13/2018 5:24 AM MISSILE PAD MECHANIC 11/13/2018 5:34 AM [facility] Vazquez Hall MD LAB - CHEMISTRY ORDERABLES Fin al Result [facility] [address] [place], [place] [id number] from Last 3 Months or Most Recently Relevant to Health Maintenance Insurance ANTHEM ANTHEM Advance Directives * Full Code (Latest Code Status on File) Date Activated Date Inactivated Comments 11/12/2018 11:11 AM 11/13/2018 3:37 PM * Full Code Date Activated Date Inactivated Comments 02/06/2017 11:50 AM 02/09/2017 5:58 PM Care Teams Turn Down Worker Relationship Specialty Start Date End Date Otto Astudillo MD, MD PCP - General 05/09/22
--- OUTSIDE RECORDS SUMMARY | 2025-03-19 18:40 | XMS_ITS | Encounter Summary ---
Author Organization [facility] Address [address] [place] [address] Phone Care Team Providers Care Florist Designer Name Role Phone Terry Garland MD Unavailable Javon Huerta MD Unavailable Francisco Dee APRN, REPAIR SERVICE DISPATCHER Primary Care Pr ovider Reason for Visit * Reason Onset Date Comments New Patient 04/13/2023 Encounter Details Date Type Department Care Team (Late st Contact Info) Description 04/13/2023 Telephone [facility] [address] [place] [address] Provider, None [place] New Patient Social History Tobacco Use Types Packs/Day Years Used Date Smoking Tobacco: Never Smokeless Tobacco: Never Alcohol Use Standard Drinks/Week Comments Yes 1 (1 standard drink = 0.6 oz pur e alcohol) socially PHQ-2 Answer Date Recorded PHQ-2 Score 0 06/29/2019 Sexually Active Control Partners Comments Yes Post-menopausal Male Comments No Sex and Gender Information Value Date Recorded Sex Assigned at Not on file Legal Sex Female 12:31 PM CDT Gender Identity Not on file Sexual Orientation Not on file documented as of this encounter Miscellaneous Notes * Telephone Encounter - Alessia Humphries - 04/13/2023 3:38 PM CDT ----- Message from Kaylen Fonseca sent at 04/13/2023 10:22 AM CDT ----- Regarding: new patient [facility] Primary Provider Request Insurance of patient: bcbs husbands insurance Name of person calling: Elizabeth Relationship to patient: self Preferred phone number: [phone] Alternate phone number: na Region / Office location preference: [place] Provider preference (male/female, specific provider name): any Willing to see someone other than physician, such as FIELD TECHNICAL SPECIALIST, PA, resident? Any Patient reason for appointment/any current symptoms: med refills, follow up care for chronic conditions Other information (including need for dispatcher automobile rental): na Route ALL calls to: [facility] PATIENT BRAKE LINING MAKER * Telephone Encounter - Alessia Humphries - 04/13/2023 3:34 PM CDT ----- Message from Kaylen Fonseca sent at 04/13/2023 10:22 AM CDT ----- Regarding: new patient New [facility] Primary Provider Request Insurance of patient: bcbs husbands insurance Name of person calling: Elizabeth Relationship to patient: self Preferred phone number: [phone] Alternate phone number: na Region / Office location preference: [place] Provider preference (male/female, specific provider name): any Willing to see someone other than physician, such as FIELD TECHNICAL SPECIALIST, PA, resident? Any Patient reason for appointment/any current symptoms: med refills, follow up care for chronic conditions Other information (including need for dispatcher automobile rental): na Route ALL calls to: [facility] PATIENT BRAKE LINING MAKER documented in this encounter Plan of Treatment Not on file documented as of this encounter Visit Diagnoses Not on filedocumented in this encounter Additional Health Concerns Assessment Noted Time PHQ-9 Depression Total Score: 0 12/11/19 19 12:00 PM ROUSTABOUT CREW LEADER documented as of this encounter Care Teams Florist Designer Relationship Specialty Start Date End Date Francisco Dee APRN, REPAIR SERVICE DISPATCHER #[address] [address] PCP - General Advanced Practice Nurse 04/25/23 5 Terry Garland MD Obstetrics & Gynecology 05/23/17 Javon Huerta MD Orthopaedic Surgery 05/23/17 documented as of this encounter
--- OUTSIDE RECORDS SUMMARY | 2025-03-19 18:41 | XMS_ITS | CONTINUITY OF CARE DOCUMENT ---
Author Name aretha carias Address Unknown Organization [facility] Address [address] [place] [address] Phone [phone] Care Team Providers Care Airport Attendant Name Role Phone Munir ESTEVEZ, Chelsey Unavailable AYLIN ESTEVEZ, DAVINA Unavailable [phone] INSURANCE PROVIDERS Payer name Policy type / Coverage type Jamul red libertarian [employer] Medicaid [id number]
--- OUTSIDE RECORDS SUMMARY | 2025-03-19 18:41 | XMS_ITS | Encounter Summary ---
Author Organization [facility] Address [address] [place] [address] Care Team Providers Care Corrective Therapy Aide Name Role Phone Michelle Ureña MD Primary Care Provider Reason for Visit * Reason Onset Date Comments Medication Request 02/03/2025 Encounter Details Date Type Department Care Team (Late st Contact Info) Description 02/03/2025 Nurse Triage [facility] Primary Care at [address] [address] Viviana Swan, RN Social History Tobacco Use Types Packs/Day Years Used Date Smoking Tobacco: Never Smokeless Tobacco: Never AUDIT-C Answer Date Recorded Q1: How often do you have a drink containing alcohol? Never 07/23/2024 Q2: How many drinks containi ng alcohol do you have on a typical day when you are drinking? Patient does not drink Q3: How often do you have si x or more drinks on one occasion? Never 07/23/2024 PHQ-2 Answer Date Recorded PHQ-2 Total Score (If total score is 3 or more points, staff should administer the PHQ-9) 0 01/01/2025 PHQ-9 Answer Date Recorded PHQ-9 Total Score 0 07/23/2024 Comments No Sex and Gender Information Value Date Recorded Sex Assigned at Not on file Legal Sex Female 12:35 AM SWAGE TENDER Gender Identity Not on file Sexual Orientation Not on file documented as of this encounter Miscellaneous Notes * Telephone Encounter - Viviana Swan RN - 02/03/2025 6:09 PM CDT Pt calls following up on refill request for Braymer. Pt called earlier today during [place] but has not received a call back. 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 RN spoke with the patient's pharmacy, who confirmed they did not have the script that was sent 01/27. The patient needs a new script sent to [facility] in [place] off of [address] Pt reports worsening pain without medication. Routing to Michelle Ureña MD clinical pool to send new script for Braymer to the patient's pharmacy. Please call the patient to confirm when it is resent. Care advice reviewed. Pt agrees to call back with worsening symptoms or further concerns. Reason for Disposition Caller requesting a CONTROLLED substance prescription refill (e.g., narcotics, ADHD medicines) Protocols used: Medication Refill and Renewal [id number] * Telephone Encounter - Eva Connell RN - 02/03/2025 5:32 PM CDT Per chart notes pt states she called for he pain medication and pharmacy stated it was not ordered and this nurse observed notes where office directed pt to call pharmacy since it has been ordered. No pharmacy confirmation noted in the chart and pharmacy called and stated no active order. * Telephone Encounter - Eva Connell RN - 02/03/2025 5:16 PM CDT Regarding: Experiencing lower back and knee pain that is unbearable. ----- Message from Stacey Cha sent at 02/03/2025 5:16 PM CDT ----- Experiencing lower back and knee pain that is unbearable. Caller states she has requested her medication (control substance)via my chart and via phone call. No results. Explained AH control substancepolicy with patient. documented in this encounter Plan of Treatment Not on file documented as of this encounter Visit Diagnoses Not on filedocumented in this encounter Care Teams Corrective Therapy Aide Relationship Specialty Start Date End Date Michelle U[place]ña [place] [id number] [address] [facility] [address] [place] [address] PCP - General Internal Medicine 06/02/23 documented as of this encounter
--- OUTSIDE RECORDS SUMMARY | 2025-03-19 18:41 | XMS_ITS | Clinical Summary ---
Author Organization [facility] [address] Address [address] [address] Phone Care Team Providers [facility] Associate Name Role Phone Michelle Ureña MD Primary Care Provider Allergies No known active allergies Medications cyanocobalamin, vitamin B-12, 1,000 mcg capsule Take 1 capsule by mouth 2 (two) times a day 90 capsule 3 10/10/20 23 Active naloxone (NARCAN) 4 mg/actuation spray,non-aeroso l Administer 1 spray into affected nostril(s) as needed for opioid reversal or respiratory depression Call 911. Administer a single spray in one nostril. Repeat every 3 minutes as needed if no or minimal response. 1 each 11/07/19 24 Active hydroCHLOROthiaz davon (HYDRODIURIL) 25 mg tabletIndication s:Primary hypertension Take 1 tablet (25 mg total) by mouth daily 100 tablet 1 07/23/20 24 Active ibuprofen (ADVIL,MOTRIN) 800 mg tablet TAKE 1 TABLET BY MOUTH THREE TIMES A DAY 90 tablet 5 10/22/19 25 Active enalapril (VASOTEC) 10 mg tabletIndication s:Primary hypertension TAKE 1 TABLET BY MOUTH EVERY DAY 100 tablet 1 01/14/20 25 Active ALPRAZolam (XANAX) 0.5 mg tabletIndication s:Anxiety TAKE 1 TABLET BY MOUTH EVERY DAY NEEDED FOR ANXIETY 30 tablet 5 01/29/20 25 Active HYDROcodone-acet aminophen (NORCO) 7.5-325 mg per tabletIndication s:Pain Take 1 tablet by mouth every 8 (eight) hours as needed for pain 90 tablet 03/06/20 25 Active HYDROcodone-acet aminophen (NORCO) 7.5-325 mg per tabletIndication s:Pain Take 1 tablet by mouth every 8 (eight) hours as needed for pain 90 tablet 02/05/20 25 025 Discontin ued(Reord er) Active Problems Problem Noted Date Diagnosed Date Chronic migraine without aur a without status migrainosus, not intractable 04/08/2021 Anxiety 09/24/2018 Assessment & Plan (01/05/2025 5:14 PM CDT): Stable The current medical regimen is effective Continue present plan and current medication(s)--alprazolam prn Assessment & Plan (07/23/2024 7:43 PM CDT): Stable The current medical regimen is effective Continue present plan and current medication(s)--alprazolam prn Assessment & Plan (01/03/2024 10:10 AM CDT): Stable The current medical regimen is effective Continue present plan and current medication(s)--alprazolam prn Assessment & Plan (06/04/2023 3:57 PM CDT): Stable The current medical regimen is effective Continue present plan and current medication(s) Asthma 02/14/2018 Hypertension 02/14/2018 Assessment & Plan (07/23/2024 7:43 PM CDT): Goal BP <140/90 Well controlled Continue current prescribed medication at current dose Encouraged low salt diet Assessment & Plan (01/03/2024 10:10 AM CDT): Goal BP <140/90 Well controlled Continue current prescribed medication at current dose Encouraged low salt diet Assessment & Plan (06/04/2023 3:57 PM CDT): Goal BP <140/90 Well controlled Continue current prescribed medication at current dose Encouraged low salt diet Low back pain 07/20/2017 Assessment & Plan (01/05/2025 5:14 PM CDT): Stable, but not improved She has failed gabapentinoids and duloxetine She has difficulty doing her daily activities and medication is not giving her as much relief Continue present plan and current medication(s)--[place] Assessment & Plan (07/23/2024 7:43 PM CDT): Stable, but not improved She has failed gabapentinoids and duloxetine She has difficulty doing her daily activities and medication is not giving her as much relief Continue present plan and current medication(s)--[place] Assessment & Plan (01/03/2024 10:10 AM CDT): Stable, but not improved She has failed gabapentinoids and duloxetine She has difficulty doing her daily activities and medication is not giving her as much relief Will increase dose of hydrocodone/acetaminophen Continue present plan and current medication(s)--[place] at higher doser Resolved Problems Problem Noted Date Diagnosed Date Resolved Date Numbness and tingling of both feet 04/08/2021 06/04/2023 Encounters Date Type Department Care Team Description 02/24/2025 Orders Only [facility] Primary Care at [facility] - [address] [place] [phone] Michelle Ureña MD Chronic midline low back pain without sciatica 02/03/2025 Nurse Triage [facility] Primary Care at [facility] - [address] [place] [phone] Viviana Swan RN 01/12/2025 Results Follow-Up [facility] Primary Care at [facility] - [address] [place] [phone] Michelle Ureña MD Hepatitis C antibody Blood, Hepatitis B surface antibody (immune status) Blood, Hepatitis B core antibody, total Blood, Additional followed-up results: 8 01/01/2025 4:40 PM CDT Lab [address] [phone] Need for hepatitis C screening test; Need for hepatitis B screening test; Primary hypertension; Screening, lipid; Peripheral polyneuropathy; Vitamin D deficiency 01/01/2025 3:45 PM CDT Office Visit [facility] Primary Care at [facility] - [address] [place] [phone] Michelle Ureña MD Chronic midline low back pain without sciatica (Primary Dx); Anxiety; Primary hypertension; Screening, lipid; Need for hepatitis B screening test; Need for hepatitis C screening test; Screening for thyroid disorder; Encounter for screening mammogram for malignant neoplasm of breast 12/25/2024 Telephone [facility] Virtual Care [address] [place] [phone] Randi Downing Virtual Care Appointment 12/25/2024 Nurse Triage [facility] Primary Care at [facility] - [address] [place] [phone] Michelle Ureña MD from Last 3 Months Immunizations Immunization Administration Dates Next Due Influenza, Quadrivalent, Split, Intramuscular Influenza, Quadrivalent, Spl it, Preservative Free, Intramuscular 09/24/2018 Surgical History Surgery Date Site/Laterality Comments LA ARTHRP KNE CONDYLE&PLATU MEDIAL&LAT COMPARTMENTS Total Knee Replacement - (Added by TW Conv) LA DELIVERY ONLY Section - (Added by Conv) LA ARTHROSCOPY KNEE DIAGNOST IC W/WO SYNOVIAL BX SPX Arthroscopy Knee - (Added by Conv) LA APPENDECTOMY Appendectomy - (Added by TW Conv) LA LIG/TRNSXJ FLP TUBE ABDL/ VAG APPR UNI/BI Tubal Ligation - (Added by TW Conv) HIP ARTHROPLASTY SHOULDER SURGERY Medical History Medical History Date Comments Personal history of other me ntal and behavioral disorders History of anxiety - (Added by TW Conv) Personal history of other di seases of the musculoskeletal system and connective tissue History of arthritis - (Adde d by TW Conv) Personal history of other di seases of the respiratory system History of asthma - (Added b y TW Conv) Personal history of other me ntal and behavioral disorders History of depression - (Add ed by TW Conv) Personal history of other di seases of the digestive system History of diverticulitis - (Added by TW Conv) Personal history of other sp ecified conditions History of headache - (Added by Conv) Personal history of other en docrine, nutritional and metabolic disease History of hyperchol esterolemia - (Added by TW Conv) Personal history of other di seases of the circulatory system History of hypertension - (A dded by Conv) Personal history of other di seases of the digestive system History of irritable bowel s yndrome - (Added by Conv) Joint disorder Joint disorder - (Added by TW Conv) Personal history of other sp ecified conditions History of fever - (Added by TW Conv) Personal history of other sp ecified conditions History of diarrhea - (Added by TW Conv) Headache, tension-type Hypertension Migraine High cholesterol Anxiety Family History Medical History Relation Name Comments Anxiety disorder Father Anxiety - ( Added by Conv) Diabetes Father Heart attack Father Family history of myocardial infarction - (Added by Conv) Hypertension Father Family history of hypertension - (Added by Conv) Stroke Father Cancer Mother Family history of cancer - (Added by Conv) Diabetes Mother Family history of diabetes mellitus - (Added by Conv) Heart attack Mother Family history of myocardial infarction - (Added by Conv) Hypertension Mother Family history of hypertension - (Added by Conv) Stroke Mother Family history of cerebrovascular accident (CVA) - (Added by Conv) Cancer Sister Family history of cancer - (Added by Conv) Migraines Sister Seizures Sister Stroke Sister Relation Name Status Comments Father Mother Sister Social History Tobacco Use Types Packs/Day Years Used Date Smoking Tobacco: Never Smokeless Tobacco: Never Tobacco Cessation:Counseling Given: Not Answered AUDIT-C Answer Date Recorded Q1: How often [...] on file Legal Sex Female 12:35 AM [employer] Gender Identity Not on file Sexual Orientation Not on file Obstetrics History Last Filed Vital Signs Vital Sign Reading Time Taken Comments Blood Pressure 112/68 01/01/2025 3:49 PM CDT Pulse 77 01/01/2025 3:49 PM CDT Temperature 37.2 C (99 F) 01/01/2025 3:49 PM CDT Respiratory Rate 18 07/23/2024 5:00 PM CDT Oxygen Saturation 99% 01/01/2025 3:49 PM CDT Inhaled Oxygen Concentration - - Weight 83.1 kg (183 lb 1.6 oz) 01/01/2025 3:49 P M CDT Height 170.2 cm (5' 7) 01/01/2025 3:49 PM CDT Body Mass Index 28.68 01/01/2025 3:49 PM CDT Plan of Treatment Health Maintenance Due Date Last Done Comments Breast Cancer Screening-Mammogram 1963 Cervical Cancer Screening 1963 Pneumococcal vaccine <65 (1 of 2 - PCV) 1982 Zoster Vaccine (1 of 2) 2013 Colon Cancer Screening-Colonoscopy 01/08/2023 01/08/2013 Regular Well Visit/Exam 18-64 06/02/2024 06/02/2023 Influenza Vaccine (Season Ended) 2025 09/24/2018, 08/10/2015 Depression Screening 01/01/2026 01/01/2025, 07/23/2024, 07/23/2024, Additional history exists DTaP/Tdap/Td Vaccine (1 - Tdap) 05/16/2030 Postponed from 1974 (Patient declined, but will receive in the future) Colon Cancer Screening-CT Colonography Discontinued 01/08/2013 Colon Cancer Screening-DNA Stool Discontinued 01/08/2013 Colon Cancer Screening-FIT Discontinued 01/08/2013 Colon Cancer Screening-Sigmoidoscopy Discontinued 01/08/2013 Hepatitis B Screening Completed 01/01/2025 Hepatitis C Screening Completed 01/01/2025 Procedures Procedure Name Priority Date/Time Associated Diagnosis Comments EGFR Routine 01/01/2025 4:47 PM CDT Primary hypertension VITAMIN D 25 HYDROXY Routine 01/01/2025 4:47 PM CDT Vitamin D deficiency VITAMIN B12 Routine 01/01/2025 4:47 PM CDT Peripheral polyneuropathy COMPREHENSIVE METABOLIC PANEL Routine 01/01/2025 4:47 PM CDT Primary hypertension LIPID PANEL Routine 01/01/2025 4:47 PM CDT Screening, lipid THYROID FUNCTION CASCADE Routine 01/01/2025 4:47 PM CDT Primary hypertension CBC WITHOUT DIFFERENTIAL Routine 01/01/2025 4:47 PM CDT Primary hypertension HEPATITIS B SURFACE ANTIGEN Routine 01/01/2025 4:47 PM CDT Need for hepatitis B screening test HEPATITIS B CORE ANTIBODY, TOTAL Routine 01/01/2025 4:47 PM CDT Need for hepatitis B screening test HEPATITIS B SURFACE ANTIBODY (IMMUNE STATUS) Routine 01/01/2025 4:47 PM CDT Need for hepatitis B screening test HEPATITIS C ANTIBODY Routine 01/01/2025 4:47 PM CDT Need for hepatitis C screening test COLONOSCOPY REPORT 01/08/2013 from Last 3 Months or Most Recently Relevant to Health Maintenance Results * eGFR (01/01/2025 4:47 PM CDT) eGFR 68 >=60 mL/min/1. 73 m2 Comment: Interpretive Data Reference Interval Normal >/= 90 mL/min/1.73m2 Mildly decreased* 60 - 89 mL/min/1.73m2 Mildly to moderately decreased 45 - 59 mL/min/1.73m2 Moderately to severely decreased 30 - 44 mL/min/1.73m2 Severely decreased 15 - 29 mL/min/1.73m2 Kidney Failure < 15 mL/min/1.73m2 *Relative to young adult level Estimated glomerular filtration rate is determined by the 2020 CKD-EPI equation recommended by the National Kidney Foundation (A Unifying Approach to GFR Estimation: Recommendations of the NKF-ASK Task Force on Reassessing the Inclusion of Race in Diagnosing Kidney Disease, JASN 2020). The CKD-EPI equation should not be used for patients with unstable renal function and has not been validated in children and those over 70. Current interpretive data was last reviewed 2021. Testing performed by: [facility], [facility] [address] [place] [address] Blood 01/01/2025 4:47 PM CDT 01/01/2025 4:47 PM CDT Michelle Ureña MD LAB BLOOD ORDERABLES Fi nal Result Performing Organization Address City/[facility] Co de Phone Number REINIER [phone] [address] [facility] [place] [address] * Thyroid Function [place] (01/01/2025 4:47 PM CDT) TSH 0.43 0.30 - 4.20 mcIUnit/mL Comment:Testing performed by : [facility], [address], [place] [address] Blood 01/01/2025 4:47 PM CDT 01/01/2025 4:47 PM CDT Michelle Ureña MD LAB BLOOD ORDERABLES Fi nal Result Performing Organization Address [facility] Co de Phone Number REINIER [phone] [address] [facility] [place] [address] * Hepatitis C antibody Blood (01/01/2025 4:47 PM CDT) Hep C Ab Nonreactive Nonreactive Comment: Interpretive Data Nonreactive: Antibodies to HCV not detected. Does NOT exclude the possibility of recent exposure to HCV. Equivocal: Equivocal for HCV antibodies. Supplemental molecular testing will be automatically performed to determine infection status in accordance with current CDC screening recommendations. Reactive: Positive for HCV antibodies. This may represent current or past HCV infection. Supplemental molecular testing will be automatically performed to determine current infection status in accordance with current CDC screening recommendations. Interpretive data was last revised on 2020. Blood 01/01/2025 4:47 PM CDT 01/01/2025 9:03 PM CDT Michelle Ureña MD LAB MICROBIOLOGY - GENE RAL ORDERABLES Final Result Performing Organization Address [facility] Co de Phone Number REINIER MARTIN [phone] [place] [address] * Hepatitis B core antibody, total Blood (01/01/2025 4:47 PM CDT) Pathologist [facility] Hep B core IgG/IgM Nonreactive Nonreactive Comment:Testing performed by : [facility], [address] [place] [address], [place]., [address] Blood 01/01/2025 4:47 PM CDT 01/01/2025 7:44 PM CDT Michelle Ureña MD LAB MICROBIOLOGY - GENE RAL ORDERABLES Final Result Performing Organization Address [facility] Co de Phone Number REINIER MARTIN [phone] [place] [place] [address] * Vitamin D 25 hydroxy (01/01/2025 4:47 PM CDT) [facility] Vitamin D 25-OH 44 30 - 80 ng/mL Blood 01/01/2025 4:47 PM CDT 01/01/2025 9:03 PM CDT Michelle Ureña MD LAB BLOOD ORDERABLES Fi nal Result Performing Organization Address [facility] [place] [address] [place] [address] * Hepatitis B surface antibody (immune status) Blood (01/01/2025 4:47 PM CDT) [facility] HBsAb (immune status) Nonreactive Comment: Interpretive Data Nonreactive: This result is consistent with a lack of immunity to Hepatitis B Virus when used in the setting of routine screening. Equivocal: The immune status of the individual should be further assessed, if appropriate, after consideration of clinical status, risk factors, and additional diagnostic information. Reactive: This result is consistent with immunity to Hepatitis B Virus when used in the setting of routine screening. Current interpretive data was last revised on 20. Blood 01/01/2025 4:47 PM CDT 01/01/2025 9:03 PM CDT Michelle Ureña MD LAB MICROBIOLOGY - GENE RAL ORDERABLES Final Result Performing Organization Address City/[facility] Co de Phone Number [facility] [phone] [address] [facility] [place] [address] * Hepatitis B Surface Antigen Blood (01/01/2025 4:47 PM CDT) Pathologist [facility] HepBsAg Nonreactive Nonreactive Blood 01/01/2025 4:47 PM CDT 01/01/2025 9:03 PM CDT Michelle Ureña MD LAB MICROBIOLOGY - GENE RAL ORDERABLES Final Result Performing Organization Address [facility] de Phone Number [facility] [phone] [address] [place] [address] * (ABNORMAL) CBC without differential (01/01/2025 4:47 PM CDT) [facility] WBC 7.1 3.8 - 9.9 K/cumm Comment:Testing performed by : [facility] [address], [place] [address] Hgb 12.5 11.9 - 15.5 g/dL CERNER CH Comment:Testing performed by : [facility] [address], [place] [address] Hct 38.2 35.6 - 45.5 % CERNER CH Comment:Testing performed by : [facility] [address], [place] [address] Plt 443(H) 150 - 400 K/cumm CERNER CH Comment:Testing performed by : [facility] [address], [place] [address] MPV 9.2 9.1 - 12.3 fL CERNER CH Comment:Testing performed by : [facility], [facility] [place] [address] RBC 4.15 3.90 - 5.20 M/cumm CERNER CH Comment:Testing performed by : [facility], [facility] [address] [place] [address] MCV 92.0 81.3 - 96.4 fL CERNER CH Comment:Testing performed by : [facility], [facility] [place] [address] MCH 30.1 27.1 - 33.3 pg CERNER CH Comment:Testing performed by : [facility], [facility] [address] [place], [place] [address] MCHC 32.7 32.3 - 35.7 g/dL CERNER CH Comment:Testing performed by : [facility], [facility] [place] [address] RDW CV 13.5 11.1 - 14.9 % RAVINER CH Comment:Testing performed by : [facility], [facility] [place] [address] RDW SD 45.6 35.7 - 48.1 fL CERNER CH Comment:Testing performed by : [facility], [facility] [place] [address] NRBC abs 0.00 0.00 - 0.01 K/cumm CERNER CH Comment:Testing performed by : [facility], [address] [place], [place] [address] [address] Blood 01/01/2025 4:47 PM CDT 01/01/2025 4:47 PM CDT Michelle Ureña MD LAB BLOOD ORDERABLES Fi nal Result [facility] [address] [address] Department [place] [address] * (ABNORMAL) Vitamin B12 (01/01/2025 4:47 PM CDT) Pathologist [facility] Vitamin B12 181(L) 230 - 1,250 pg/mL Blood 01/01/2025 4:47 PM CDT 01/01/2025 9:03 PM CDT Michelle Ureña MD LAB BLOOD ORDERABLES Fi nal Result REINIER [address] [address] Department of Laboratories [place] [phone] * (ABNORMAL) Lipid panel (01/01/2025 4:47 PM CDT) Cholesterol 256(H) 30 - 199 mg/dL Comment: Interpretive Data Ages < or = 19 years Acceptable: <170 mg/dL Borderline high: 170-199 mg/dL High: >or= 200 mg/dL Ages > or = 20 years Desirable: <200 mg/dL Borderline high: 200-239 mg/dL High: >or= 240 mg/dL Literature References: 1. Expert Panel on Integrated Guidelines for Cardiovascular Health and Risk Reduction in Children and Adolescents. Pediatrics 2011;128:S213 2. NCEP Expert Panel. Circulation 2004;110:227 Current Interpretive Data was last revised on 2018. Testing performed by: [facility], [facility] [place] [address] Triglycerides 318(H) <=149 mg/dL REINIER MARTIN Comment: Interpretive Data Ages < or = 9 years Acceptable: <75 mg/dL Borderline high: 75-99 mg/dL High: >or= 100 mg/dL Ages 10 to 20 years Acceptable: <90 mg/dL Borderline high: 90-129 mg/dL High: >or= 130 mg/dL Ages > or = 20 years Desirable: <150 mg/dL Borderline high: 150-199 mg/dL High: 200-499 mg/dL Very high: >or= 499 mg/dL Literature References: 1. Expert Panel on Integrated Guidelines for Cardiovascular Health and Risk Reduction in Children and Adolescents. Pediatrics 2011;128:S213 2. NCEP Expert Panel. Circulation 2004;110:227 Current Interpretive Data was last revised on 2018. Testing performed by: [facility], [place] [address] HDL 55 >=40 mg/dL REINIER MARTIN Comment: Interpretive Data Ages < or = 19 years Acceptable: >45 mg/dL Borderline low: 40-45 mg/dL Low: <40 mg/dL Ages > or = 20 years Desirable: >or= 60 mg/dL Low: <40 mg/dL Literature References: 1. Expert Panel on Integrated Guidelines for Cardiovascular Health and Risk Reduction in Children and Adolescents. Pediatrics 2011;128:S213 2. NCEP Expert Panel. Circulation 2004;110:227 Current Interpretive Data was last revised on 2018. Testing performed by: [facility], [place] [address] LDL, calculated 143(H) <=129 mg/dL REINIER MARTIN Comment: Interpretive Data Ages < or = 19 years Acceptable: <110 mg/dL Borderline high: 110-129 mg/dL High: >or= 130 mg/dL Ages > or = 20 years Optimal: <100 mg/dL Near optimal: 100-129 mg/dL Borderline high: 130-159 mg/dL High: >160 mg/dL Calculated using the Jameson LDL-C estimating equation. This equation was implemented on 2024. Prior to this date LDL-C was estimated using the Friedewald equation. Literature References: 1. Expert Panel on Integrated Guidelines for Cardiovascular Health and Risk Reduction in Children and Adolescents. Pediatrics 2011;128:S213 2. NCEP Expert Panel. Circulation 2004;110:227 3. Jameson Asif et al. DOC Cardiol. 2019February 13;5(5):540-548. doi: 10.1001/jamacardio.2020.0013 Current Interpretive Data was last revised on 2024. Testing performed by: [facility], [place] [address] Non-HDL Cholesterol 201 mg/dL REINIER Comment: Interpretive Data Ages < or = 19 years Acceptable: <120 mg/dL Borderline high: 120-144 mg/dL High: >145 mg/dL Ages > or = 20 years When triglycerides are >200 mg/dL, Non-HDL cholesterol is a secondary target of therapy with treatment goals that are 30 mg/dL greater than the LDL cholesterol target. Literature References: 1. Expert Panel on Integrated Guidelines for Cardiovascular Health and Risk Reduction in Children and Adolescents. Pediatrics 2011;128:S213 2. NCEP Expert Panel. Circulation 2004;110:227 Current Interpretive Data was last revised on 2018. Testing performed by: [facility], [place] [address] Chol/HDL ratio 5 REINIER Comment:Testing performed by : [facility], [address], [place] [address] Blood 01/01/2025 4:47 PM CDT 01/01/2025 4:47 PM CDT us Michelle Ureña MD LAB BLOOD ORDERABLES Fi nal Result [facility] [address] [address] Department [place] [address] * (ABNORMAL) Comprehensive metabolic panel (01/01/2025 4:47 PM CDT) Sodium 137 135 - 145 mmol/L Comment:Testing performed by : [facility] [address], [place] [address] Potassium, pl 4.4 3.3 - 4.9 mmol/L [facility] Comment:Testing performed by : [facility] [address], [place] [address] Chloride 100 97 - 110 mmol/L [facility] Comment:Testing performed by : [facility] [address], [place] [address] CO2 25 22 - 32 mmol/L [facility] Comment:Testing performed by : [facility] [address], [place] [address] Anion gap 12 2 - 15 mmol/L [facility] Comment:Testing performed by : [facility] [address], [place] [address] BUN 33(H) 6 - 25 mg/dL [facility] Comment:Testing performed by : [facility] [address], [place] [address] Creatinine 0.95 0.60 - 1.10 mg/dL [facility] Comment:Testing performed by : [facility] [address], [place] [address] Glucose 82 70 - 199 mg/dL [facility] Comment: Interpretive Data Fasting glucose >/= 126 mg/dl is diagnostic for diabetes. Fasting is defined as no caloric intake for at least 8 hours. Fasting glucose between 100 mg/dl to 125 mg/dl is diagnostic of prediabetes. In a patient with classic symptoms of hyperglycemia or hyperglycemic crisis, a random glucose >/= 200 mg/dl is diagnostic for diabetes. In the absence of unequivocal hyperglycemia, results should be confirmed by repeat testing. The classification and Diagnosis of Diabetes Diabetes Care 2021; 46: S19-S40. Current interpretive data was last revised 2022. Testing performed by: [facility], [facility] [place] [address] Calcium 10.3 8.5 - 10.3 mg/dL [facility] Comment:Testing performed by : [facility] [address], [place] [address] Bilirubin, total 0.3 0.1 - 1.2 mg/dL [facility] Comment:Testing performed by : [facility] [address], [place] [address] Protein, pl 8.2 6.5 - 8.5 g/dL [facility] Comment:Testing performed by : [facility] [address] [place] [address] Albumin 4.5 3.5 - 5.0 g/dL [facility] Comment:Testing performed by : [facility] [address], [place] [address] Alk phos 64 40 - 130 Units/L [facility] Comment:Testing performed by : [facility] [address], [place] [address] ALT 24 7 - 45 Units/L [facility] Comment:Testing performed by : [facility] [address], [place] [address] AST 25 10 - 45 Units/L [facility] Comment:Testing performed by : [facility] [place] [address] Blood 01/01/2025 4:47 PM CDT 01/01/2025 4:47 PM CDT Michelle Ureña MD LAB BLOOD ORDERABLES Fi nal Result [facility] [address] Department [place] [address] * COLONOSCOPY REPORT (01/08/2013) Anatomical Region Laterality Modality Other Narrative 01/08/2013 Ordered by an unspecified provider. Historical Provider GI PROCEDURE ORDERABLES F inal Result from Last 3 Months or Most Recently Relevant to Health Maintenance Insurance [facility] [employer] OOS [employer] OOS Care Teams Regional Clinical Research Associate Relationship Specialty Start [place] Date Michelle [place] [address] [address] [facility] [address] [place] [address] PCP - General Internal Medicine 06/02/23
--- OUTSIDE RECORDS SUMMARY | 2025-03-19 18:41 | XMS_ITS | Referral Summary ---
Author Organization [facility] [address] Address [address] [place] [address] Phone Care Team Providers Care Setter Juice Packaging Machines Name Role Phone Michelle Ureña MD Primary Care Provider Encounters Date Type Department Care Team Description 02/24/2025 Orders Only [facility] Medical [facility] Primary Care at [address] [address] Michelle Ureña MD Chronic midline low back pain without sciatica 02/03/2025 Nurse Triage [facility] Primary Care at [address] [address] Viviana Swan RN 01/12/2025 Results Follow-Up [facility] Primary Care at [address] [address] Michelle Ureña MD Hepatitis C antibody Blood, Hepatitis B surface antibody (immune status) Blood, Hepatitis B core antibody, total Blood, Additional followed-up results: 8 01/01/2025 4:40 PM CDT Lab [address] [address] Need for hepatitis C screening test; Need for hepatitis B screening test; Primary hypertension; Screening, lipid; Peripheral polyneuropathy; Vitamin D deficiency 01/01/2025 3:45 PM CDT Office Visit [facility] Medical Group Primary Care at [address] [place] [phone] Michelle Ureña MD Chronic midline low back pain without sciatica (Primary Dx); Anxiety; Primary hypertension; Screening, lipid; Need for hepatitis B screening test; Need for hepatitis C screening test; Screening for thyroid disorder; Encounter for screening mammogram for malignant neoplasm of breast 12/25/2024 Telephone [facility] Virtual Care [address] [place] [address] Randi Downing Virtual Care Appointment 12/25/2024 Nurse Triage [facility] Primary Care at [facility] - [address] [place] [phone] Michelle Ureña MD from Last 3 Months Allergies No known active allergies Medications cyanocobalamin, [...] much relief Continue present plan and current medication(s)--Monclova Assessment & Plan (07/23/2024 7:43 PM CDT): Stable, but not improved She has failed gabapentinoids and duloxetine She has difficulty doing her daily activities and medication is not giving her as much relief Continue present plan and current medication(s)--Monclova Assessment & Plan (01/03/2024 10:10 AM CDT): Stable, but not improved She has failed gabapentinoids and duloxetine She has difficulty doing her daily activities and medication is not giving her as much relief Will increase dose of hydrocodone/acetaminophen Continue present plan and current medication(s)--Monclova at higher doser Resolved Problems Problem Noted Date Diagnosed Date Resolved Date Numbness and tingling of both feet 04/08/2021 06/04/2023 Immunizations Immunization Administration Dates Next Due Influenza, Quadrivalent, Split, Intramuscular Influenza, Quadrivalent, Spl it, Preservative Free, Intramuscular 09/24/2018 Social History Tobacco Use Types Packs/Day Years [...] on file 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 Testing performed by: [facility], [address] [place] [address] Blood 01/01/2025 4:47 PM CDT 01/01/2025 4:47 PM CDT Michelle Ureña MD LAB BLOOD ORDERABLES [place] [address] [address] Department [place] [address] * Thyroid Function [place] (01/01/2025 4:47 PM CDT) TSH 0.43 0.30 - 4.20 mcIUnit/mL Comment:Testing performed by : [facility], [address] [place] [address] Blood 01/01/2025 4:47 PM CDT 01/01/2025 4:47 PM CDT Michelle Ureña MD LAB BLOOD ORDERABLES Fi nal Result Performing Organization Address City/[facility] Co de Phone Number REINIER MARTIN [address] [address] Department [place] [address] * Hepatitis C antibody Blood (01/01/2025 4:47 [...] RAL ORDERABLES Final Result Performing Organization Address [facility] Co de Phone Number REINIER MARTIN [address] [address] Department [employer] [place], [place] [id number] * Hepatitis B core antibody, total Blood (01/01/2025 4:47 PM CDT) Hep B core IgG/IgM Nonreactive Nonreactive Comment:Testing performed by : [facility], [address] [place]., [address] Blood 01/01/2025 4:47 PM CDT 01/01/2025 7:44 PM CDT Michelle Ureña MD LAB MICROBIOLOGY - GENE RAL ORDERABLES Final Result Performing Organization Address City/[facility]/ZIP Co de Phone Number REINIER MARTIN [address] [address] Department of [employer] [place], [place] [id number] * Vitamin D 25 hydroxy (01/01/2025 4:47 PM CDT) Vitamin D 25-OH 44 30 - 80 ng/mL Blood 01/01/2025 4:47 PM CDT 01/01/2025 9:03 PM CDT Michlele Ureña MD LAB BLOOD ORDERABLES Fi nal Result Performing Organization Address [facility] Co de Phone Number RAVIMAXIMO [address] [address] [facility] [place] [address] * Hepatitis B surface antibody (immune status) Blood (01/01/2025 4:47 PM CDT) Pathologist [facility] HBsAb (immune status) Nonreactive Comment: Interpretive Data [...] 4:47 PM CDT 01/01/2025 9:03 PM CDT us Michelle Ureña MD LAB MICROBIOLOGY - GENE RAL ORDERABLES Final Result Performing Organization Address City/[facility] Co de Phone Number RAVIMAXIMO [address] [place] [address] * Hepatitis B Surface Antigen Blood (01/01/2025 4:47 PM CDT) Pathologist [facility] HepBsAg Nonreactive Nonreactive Blood 01/01/2025 4:47 PM CDT 01/01/2025 9:03 PM CDT Michelle Ureña MD LAB MICROBIOLOGY - GENE RAL ORDERABLES Final Result Performing Organization Address City/[facility] Co de Phone Number REINIER [address] [address] Department [place] [address] * (ABNORMAL) CBC without differential (01/01/2025 4:47 PM CDT) [facility] WBC 7.1 3.8 - 9.9 K/cumm Comment:Testing performed by : [facility] [address] [place] [address] Hgb 12.5 11.9 - 15.5 g/dL [facility] Comment:Testing performed by : [facility] [address] [place] [address] Hct 38.2 35.6 - 45.5 % [facility] Comment:Testing performed by : [facility] [address] [place] [address] Plt 443(H) 150 - 400 K/cumm [facility] Comment:Testing performed by : [facility] [place] [address] MPV 9.2 9.1 - 12.3 fL [facility] Comment:Testing performed by : [facility] [address] [place] [address] RBC 4.15 3.90 - 5.20 M/cumm [facility] Comment:Testing performed by : [facility] [place] [address] MCV 92.0 81.3 - 96.4 fL [facility] Comment:Testing performed by : [facility] [address] [place] [address] MCH 30.1 27.1 - 33.3 pg [facility] Comment:Testing performed by : [facility] [address] [place] [address] MCHC 32.7 32.3 - 35.7 g/dL [facility] Comment:Testing performed by : [facility] [place] [address] RDW CV 13.5 11.1 - 14.9 % [facility] Comment:Testing performed by : [facility] [address] [place] [address] RDW SD 45.6 35.7 - 48.1 fL [facility] Comment:Testing performed by : [facility] [address] [address] [place] [address] NRBC abs 0.00 0.00 - 0.01 K/cumm [facility] Comment:Testing performed by : [facility], [address], [place] [address] Blood 01/01/2025 4:47 PM CDT 01/01/2025 4:47 PM CDT Michelle Ureña MD LAB BLOOD ORDERABLES Fi nal Result Performing Organization Address City/[facility] Co de Phone Number [facility] [address] [address] [employer] [place] [address] * (ABNORMAL) Vitamin B12 (01/01/2025 4:47 PM CDT) Vitamin B12 181(L) 230 - 1,250 pg/mL Blood 01/01/2025 4:47 PM CDT 01/01/2025 9:03 PM CDT Michelle Ureña MD LAB BLOOD ORDERABLES Fi nal Result Performing Organization Address [facility] de Phone Number [facility] [address] [address] Department [place] [address] * (ABNORMAL) Lipid panel (01/01/2025 4:47 PM [...] last revised on 2018. Testing performed by: [facility], [address], [place] [address] Triglycerides 318(H) <=149 mg/dL [facility]IN Comment: [...] last revised on 2018. Testing performed by: [facility], [address] [address] HDL 55 >=40 mg/dL RE[facility] Comment: Interpretive Data Ages < [...] last revised on 2018. Testing performed by: [facility], [address] [address] LDL, calculated 143(H) <=129 mg/dL RE[facility]IER Comment: Interpretive Data Ages < [...] NCEP Expert Panel. Circulation 2004;110:227 3. Jameson Diaz al. DOC Cardiol. 2020 February 13;5(5):540-548. doi: 10.1001/jamacardio.2020.0013 Current Interpretive Data was last revised on 2024. Testing [facility] [address], [place] [address] Non-HDL Cholesterol 201 mg/dL [facility] Comment: Interpretive Data Ages < or = [...] last revised on 2018. Testing performed [facility]: [facility] [address], [place] [address] Chol/HDL ratio 5 [facility] Comment:Testing performed by : [facility] [address], [place] [address] Blood 01/01/2025 4:47 PM CDT 01/01/2025 4:47 PM CDT us Michelle Ureña MD LAB BLOOD ORDERABLES Fi nal Result [facility] [address] [address] Department of Laboratories [place], [place] [id number] * (ABNORMAL) Comprehensive metabolic panel (01/01/2025 4:47 PM CDT) Sodium 137 135 - 145 mmol/L Comment:Testing performed by : [facility] [address], [place] [address] Potassium, pl 4.4 3.3 - 4.9 mmol/L [facility] Comment:Testing performed by : [facility] [address], [place] [address] Chloride 100 97 - 110 mmol/L [facility] Comment:Testing performed by : [facility] [address], [place] [address] CO2 25 22 - 32 mmol/L [facility] Comment:Testing performed by : [facility] [address], [place] [address] Anion gap 12 2 - 15 mmol/L [facility] Comment:Testing performed by : [facility] [place] [address] BUN 33(H) 6 - 25 mg/dL [facility] Comment:Testing performed by : [facility] [place] [address] Creatinine 0.95 0.60 - 1.10 mg/dL [facility] Comment:Testing performed by : [facility] [place] [address] Glucose 82 70 - 199 mg/dL [facility] Comment: Interpretive Data Fasting glucose >/= 126 [...] was last revised 2022. Testing performed by: [facility] [place] [address] Calcium 10.3 8.5 - 10.3 mg/dL [facility] Comment:Testing performed by : [facility] [place] [address] Bilirubin, total 0.3 0.1 - 1.2 mg/dL [facility] Comment:Testing performed by : [facility] [place] [address] Protein, pl 8.2 6.5 - 8.5 g/dL [facility] Comment:Testing performed by : [facility] [address] [place] [address] Albumin 4.5 3.5 - 5.0 g/dL [facility] Comment:Testing performed by : [facility] [place] [address] Alk phos 64 40 - 130 Units/L [facility] Comment:Testing performed [facility] : [facility] [address], [place] [address] ALT 24 7 - 45 Units/L [facility] Comment:Testing performed by : [facility] [place] [address] AST 25 10 - 45 Units/L [facility] Comment:Testing performed by : [facility], [facility], [place] [address] Blood 01/01/2025 4:47 PM CDT 01/01/2025 4:47 PM CDT us Michelle Ureañ MD LAB BLOOD ORDERABLES Fi nal Result RE[facility]IER [address] [address] Department [place] [address] * COLONOSCOPY REPORT (01/08/2013) Anatomical Region Laterality Modality Other Narrative 01/08/2013 Ordered by an unspecified provider. us Historical Provider GI PROCEDURE ORDERABLES F inal Result from Last 3 Months or Most Recently Relevant to Health Maintenance Insurance [facility] [employer] [facility] [employer] O[employer] Care Teams Setter [employer] Relationship Specialty Start Date [place] Date Michelle U[place]ña [place] [address] [facility] [address] [place] [address] PCP - General Internal Medicine 06/02/23
[2025-03-19 18:43] VITALS: BP 110/78; PULSE 82; RESP 14; TEMP 36.4; O2SAT 99
--- OUTSIDE RECORDS SUMMARY | 2025-03-19 19:02 | XMS_ITS | Encounter Summary ---
Author Organization [facility] Address [address] [facility] [place] [address] Phone Care Team Providers Care Final Assembler Name Role Phone Terry Garland MD Unavailable [phone] Javon Huerta MD Unavailable Francisco Dee APRN, SHAPE BRICK MOLDER Primary Care Pr ovider Reason for Visit * Reason Onset Date Comments New Patient 04/13/2023 Encounter Details Date Type Department Care Team (Late st Contact Info) Description 04/13/2023 Telephone [facility] [address] [place] [address] Provider, None [place] New Patient [...] AM CDT ----- Regarding: new patient [facility] Primary Provider Request Insurance of patient: bcbs husbands insurance Name of person calling: Elizabeth Relationship to patient: self Preferred phone number: [phone] Alternate phone number: na Region / Office location preference: [place] Provider preference (male/female, specific provider name): any Willing to see someone other than physician, such as COOLING PIPE INSPECTOR, PA, resident? Any Patient reason for appointment/any current symptoms: med refills, follow up care for chronic conditions Other information (including need for parts interpreter): na Route ALL calls to: [facility] PATIENT AVIONICS REPAIR TECHNICIAN * Telephone Encounter - Alessia Humphries - 04/13/2023 3:34 PM CDT ----- Message from Kaylen Fonseca sent at 04/13/2023 10:22 AM CDT ----- Regarding: new patient New [facility] Primary Provider Request Insurance of patient: bcbs husbands insurance Name of person calling: Elizabeth Relationship to patient: self Preferred phone number: [phone] Alternate phone number: na Region / Office location preference: [place] Provider preference (male/female, specific provider name): any Willing to see someone other than physician, such as COOLING PIPE INSPECTOR, PA, resident? 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
--- OUTSIDE RECORDS SUMMARY | 2025-03-19 19:02 | XMS_ITS | Encounter Summary ---
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 Pt called earlier today during [place] but has not received a call back. Pt has been unable to flower picker [place] script that she normally receives on the of the . RN spoke with the patient's pharmacy, who confirmed they did not have the script that was sent 01/27. The patient needs a new script sent to [facility] in [place] off of [address] Pt reports worsening pain without medication. Routing to Michelle Ureña MD clinical pool to send new script for [place] to the patient's pharmacy. Please call the patient to confirm when it is resent. Care advice reviewed. Pt agrees to call back with worsening symptoms or further concerns. Reason for Disposition Caller requesting a CONTROLLED substance prescription refill (e.g., narcotics, ADHD medicines) Protocols used: Medication Refill and Renewal [id number] * Telephone Encounter - Eva Connell RN [...] on filedocumented in this encounter Care Teams Banquet Houseperson Relationship Specialty Start Date [place] Date Michelle U[place]ña [place] [address] [facility] [address] [place] [address] PCP - General Internal Medicine 06/02/23 documented as of this encounter
--- OUTSIDE RECORDS SUMMARY | 2025-03-19 19:02 | XMS_ITS | Clinical Summary ---
Author Organization [facility] Address [address] [place] [address] Phone Care Team Providers Care Pearl Diver Name Role Phone Terry Garland MD Unavailable Javon Huerta MD Unavailable [phone] Allergies No known active allergies Medications enalapril [...] (HPV) 07/27/2015 12:00 AM CDT PATHOLOGY CYTOLOGY COMPLIANCE ANALYST Routine 07/27/2015 from Last 3 Months or Most Recently Relevant to Health Maintenance Results * PATHOLOGY CYTOLOGY COMPLIANCE ANALYST (07/27/2015) Specimen of unknown material (specimen) Terry Garland MD PATHOLOGY/CYTOLOGY ORD ERABLES Final Result * HUMAN PAPILLOMA VIRUS (HPV) (07/27/2015 12:00 AM CDT) 07/27/2015 us Terry Garland MD LAB SEND OUTS Final Result [facility] NON-INTERFACED REFERENCE LABORATORIES from Last 3 Months or Most Recently Relevant to Health Maintenance Insurance [facility] Care Teams Pearl Diver Relationship Specialty Start Date End Date Terry Garland MD Obstetrics & Gynecology 05/23/17 Javon Huerta MD Orthopaedic Surgery 05/23/17
--- OUTSIDE RECORDS SUMMARY | 2025-03-19 19:02 | XMS_ITS | Clinical Summary ---
Author Organization CC [facility] [address] Address [address] [place] [address] Phone Care Team Providers Care Butadiene Converter Operator Name Role Phone Michelle Ureña MD Primary [...] much relief Continue present plan and current medication(s)--Hahira Assessment & Plan (07/23/2024 7:43 PM CDT): Stable, but not improved She has failed gabapentinoids and duloxetine She has difficulty doing her daily activities and medication is not giving her as much relief Continue present plan and current medication(s)--Hahira Assessment & Plan (01/03/2024 10:10 AM CDT): Stable, but not improved She has failed gabapentinoids and duloxetine She has difficulty doing her daily activities and medication is not giving her as much relief Will increase dose of hydrocodone/acetaminophen Continue present plan and current medication(s)--Hahira at higher doser Resolved Problems Problem Noted Date Diagnosed Date Resolved Date Numbness and tingling of both feet 04/08/2021 06/04/2023 Encounters Date Type Department Care Team Description 02/24/2025 Orders Only [facility] Primary Care at [facility] - [address] [place] [phone] Michelle Ureña MD Chronic midline low back pain without sciatica 02/03/2025 Nurse Triage [facility] at [facility] - [address] [place] [phone] Viviana Swan RN 01/12/2025 Results Follow-Up [facility] Primary Care at [facility] - [address] [place] [phone] iMchelle Ureña MD Hepatitis C antibody Blood, Hepatitis B surface antibody (immune status) Blood, Hepatitis B core antibody, total Blood, Additional followed-up results: 8 01/01/2025 4:40 PM CDT Lab [address] [phone] Need for hepatitis C screening test; Need for hepatitis B screening test; Primary hypertension; Screening, lipid; Peripheral polyneuropathy; Vitamin D deficiency 01/01/2025 3:45 PM CDT Office Visit [facility] at [facility] - [address] [place] [phone] Michelle Ureña MD Chronic midline low back pain without sciatica (Primary Dx); Anxiety; Primary hypertension; Screening, lipid; Need for hepatitis B screening test; Need for hepatitis C screening test; Screening for thyroid disorder; Encounter for screening mammogram for malignant neoplasm of breast 12/25/2024 Telephone [facility] [address] [place] [phone] Randi Downing Virtual Care Appointment 12/25/2024 Nurse Triage [facility] Primary Care at [facility] - [address] [place] [phone] Michelle Ureña MD from Last 3 Months Immunizations Immunization Administration Dates Next Due Influenza, Quadrivalent, Split, Intramuscular Influenza, Quadrivalent, Spl it, Preservative Free, Intramuscular 09/24/2018 Surgical History Surgery Date Site/Laterality Comments VT ARTHRP KNE CONDYLE&PLATU MEDIAL&LAT COMPARTMENTS Total Knee Replacement - (Added by TW Conv) VT DELIVERY ONLY Section - (Added by Conv) [place] ARTHROSCOPY KNEE DIAGNOST IC W/WO SYNOVIAL BX SPX Arthroscopy Knee - (Added by Conv) VT APPENDECTOMY Appendectomy - (Added by TW Conv) [place] LIG/TRNSXJ FLP TUBE ABDL/ VAG APPR UNI/BI [...] on file 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 Testing performed by: [facility] [place] [address] Blood 01/01/2025 4:47 PM CDT 01/01/2025 4:47 PM CDT Michelle Ureña MD LAB BLOOD ORDERABLES Fi nal Result Performing Organization Address City/[facility] Co de Phone Number REINIER [phone] [address] [facility] [place] [address] * Thyroid Function [place] (01/01/2025 4:47 PM CDT) TSH 0.43 0.30 - 4.20 mcIUnit/mL Comment:Testing performed by : [facility], [address], [place] [address] Blood 01/01/2025 4:47 PM CDT 01/01/2025 4:47 PM CDT Michelle Ureña MD LAB BLOOD ORDERABLES Fi nal Result Performing Organization Address [facility] Co de Phone Number REINIER [phone] [address] [facility] [place] [address] * Hepatitis C antibody Blood [...] RAL ORDERABLES Final Result Performing Organization Address [facility] Co de Phone Number REINIER MARTIN [phone] [address] Department [place] [address] * Hepatitis B core antibody, total Blood (01/01/2025 4:47 PM CDT) Pathologist [facility] [place] Hep B core IgG/IgM Nonreactive Nonreactive Comment:Testing performed by : [facility], [address] [place] [address], [place]., [address] Blood 01/01/2025 4:47 PM CDT 01/01/2025 7:44 PM CDT Michelle Ureña MD LAB MICROBIOLOGY - GENE RAL ORDERABLES Final Result Performing Organization Address [facility] Co de Phone Number REINIER MARTIN [address] [address] Department [place] [address] * Vitamin D 25 hydroxy (01/01/2025 4:47 PM CDT) [facility] Vitamin D 25-OH 44 30 - 80 ng/mL Blood 01/01/2025 4:47 PM CDT 01/01/2025 9:03 PM CDT Michelle Ureña MD LAB BLOOD ORDERABLES Fi nal Result Performing Organization Address [facility] [place] [address] [address] [place] [address] * Hepatitis B surface antibody (immune status) Blood (01/01/2025 4:47 PM CDT) [facility] HBsAb (immune status) Nonreactive Comment: Interpretive Data [...] RAL ORDERABLES Final Result Performing Organization Address City/[facility] Co de Phone Number [facility] [address] [address] Lopez [facility] [place] [address] * Hepatitis B Surface Antigen Blood (01/01/2025 4:47 PM CDT) Pathologist [facility] HepBsAg Nonreactive Nonreactive Blood 01/01/2025 4:47 PM CDT 01/01/2025 9:03 PM CDT Michelle Ureña MD LAB MICROBIOLOGY - GENE RAL ORDERABLES Final Result Performing Organization Address [facility] de Phone Number [facility] [address] [address] Department [place] [address] * (ABNORMAL) CBC without differential (01/01/2025 4:47 PM CDT) [facility] WBC 7.1 3.8 - 9.9 K/cumm Comment:Testing [facility] : [facility] [address], [place] [address] Hgb 12.5 11.9 - 15.5 g/dL CERNER CH Comment:Testing performed by : [address], [place] [address] Hct 38.2 35.6 - 45.5 % CERNER CH Comment:Testing performed by : [address], [place] [address] Plt 443(H) 150 - 400 K/cumm CERNER CH Comment:Testing performed by : [address], [place] [address] MPV 9.2 9.1 - 12.3 fL CERNER CH Comment:Testing performed by : [facility], [facility] [place] [address] RBC 4.15 3.90 - 5.20 M/cumm CERNER CH Comment:Testing performed by : [facility] [address] [place] [address] MCV 92.0 81.3 - 96.4 fL CERNER CH Comment:Testing performed by : [facility] [address] [place] [address] MCH 30.1 27.1 - 33.3 pg CERNER CH Comment:Testing performed by : [facility], [facility] [address] [place], [place] [address] MCHC 32.7 32.3 - 35.7 g/dL CERNER CH Comment:Testing performed by : [facility], [facility] [place] [address] RDW CV 13.5 11.1 - 14.9 % RAVINER CH Comment:Testing performed by : [facility], [facility] [place] [address] RDW SD 45.6 35.7 - 48.1 fL CERNER CH Comment:Testing performed by : [facility], [facility] [place] [address] NRBC abs 0.00 0.00 - 0.01 K/cumm CERNER CH Comment:Testing performed by : [facility], [address] [place], [place] [address] [address] Blood 01/01/2025 4:47 PM CDT 01/01/2025 4:47 PM CDT Michelle Ureña MD LAB BLOOD ORDERABLES Fi nal Result [facility] [address] [address] Department [place] [address] * (ABNORMAL) Vitamin B12 (01/01/2025 4:47 PM CDT) Pathologist [facility] Vitamin B12 181(L) 230 - 1,250 pg/mL Blood 01/01/2025 4:47 PM CDT 01/01/2025 9:03 PM CDT Michelle Ureña MD LAB BLOOD ORDERABLES Fi nal Result REINIER [address] [address] Department of Laboratories [place] [phone] * (ABNORMAL) Lipid panel (01/01/2025 4:47 PM [...] last revised on 2018. Testing performed by: [facility] [place] [address] Triglycerides 318(H) <=149 mg/dL REINIER MARTIN Comment: [...] last revised on 2018. Testing performed by: [facility], [place] [address] HDL 55 >=40 mg/dL REINIER MARTIN Comment: [...] last revised on 2018. Testing performed by: [facility], [place] [address] LDL, calculated 143(H) <=129 mg/dL REINIER MARTIN [...] last revised on 2024. Testing performed by: [facility], [place] [address] Non-HDL Cholesterol 201 mg/dL REINIER Comment: Interpretive [...] last revised on 2018. Testing performed by: [facility], [place] [address] Chol/HDL ratio 5 REINIER Comment:Testing performed by : [facility], [address], [place] [address] Blood 01/01/2025 4:47 PM CDT 01/01/2025 4:47 PM CDT us Michelle Ureña MD LAB BLOOD ORDERABLES Fi nal Result [facility] [address] [address] Department [place] [address] * (ABNORMAL) Comprehensive metabolic panel (01/01/2025 4:47 PM CDT) Sodium 137 135 - 145 mmol/L Comment:Testing performed by : [facility] [address], [place] [address] Potassium, pl 4.4 3.3 - 4.9 mmol/L [facility] Comment:Testing performed by : [address], [place] [address] Chloride 100 97 - 110 mmol/L [facility] Comment:Testing performed by : [address], [place] [address] CO2 25 22 - 32 mmol/L [facility] Comment:Testing performed by : [address], [place] [address] Anion gap 12 2 - 15 mmol/L [facility] Comment:Testing performed by : [address], [place] [address] BUN 33(H) 6 - 25 mg/dL [facility] Comment:Testing performed by : [address], [place] [address] Creatinine 0.95 0.60 - 1.10 mg/dL [facility] Comment:Testing performed by : [address], [place] [address] Glucose 82 70 - 199 mg/dL [facility] Comment: Interpretive Data Fasting glucose >/= 126 [...] was last revised 2022. Testing performed by: [facility] [place] [address] Calcium 10.3 8.5 - 10.3 mg/dL CERNER CH Comment:Testing performed by : [address], [place] [address] Bilirubin, total 0.3 0.1 - 1.2 mg/dL CERNER CH Comment:Testing performed by : [address], [place] [address] Protein, pl 8.2 6.5 - 8.5 g/dL CERNER CH Comment:Testing performed by : [facility] [address] [place] [address] Albumin 4.5 3.5 - 5.0 g/dL CERNER CH Comment:Testing performed by : [facility] [address], [place] [address] Alk phos 64 40 - 130 Units/L CERNER CH Comment:Testing performed by : [facility] [address], [place] [address] ALT 24 7 - 45 Units/L CERNER CH Comment:Testing performed by : [facility] [address], [place] [address] AST 25 10 - 45 Units/L CERNER CH Comment:Testing performed by : [facility] [place] [address] Blood 01/01/2025 4:47 PM CDT 01/01/2025 4:47 PM CDT Michelle Ureña MD LAB BLOOD ORDERABLES Fi nal Result [facility] [address] [address] Department [place] [address] * COLONOSCOPY REPORT (01/08/2013) Anatomical Region Laterality Modality Other Narrative 01/08/2013 Ordered by an unspecified provider. Historical Provider GI PROCEDURE ORDERABLES F inal Result from Last 3 Months or Most Recently Relevant to Health Maintenance Insurance [facility] [employer] ACC[employer] Care Teams Butadiene Converter Operator Relationship Specialty Start Date [place] [id number] [address] [facility] [address] [place] [address] PCP - General Internal Medicine 06/02/23
--- OUTSIDE RECORDS SUMMARY | 2025-03-19 19:02 | XMS_ITS | Referral Summary ---
Author Organization [facility] [address] Address [address] [place] [address] Phone Care Team Providers Care Security Associate Name Role Phone Michelle Ureña MD Primary Care Provider Encounters Date Type Department Care Team Description 02/24/2025 Orders Only [facility] Primary Care at [address] [phone] Michelle Ureña MD Chronic midline low back pain without sciatica 02/03/2025 Nurse Triage [facility] Primary Care at [address] [phone] Viviana Swan RN 01/12/2025 Results Follow-Up [facility] Primary Care at [address] [phone] Michelle Ureña MD Hepatitis C antibody Blood, Hepatitis B surface antibody (immune status) Blood, Hepatitis B core antibody, total Blood, Additional followed-up results: 8 01/01/2025 4:40 PM CDT Lab [address] [phone] Need for hepatitis C screening test; Need for hepatitis B screening test; Primary hypertension; Screening, lipid; Peripheral polyneuropathy; Vitamin D deficiency 01/01/2025 3:45 PM CDT Office Visit [facility] Primary Care at [address] [place] [phone] Michelle Ureña MD Chronic midline low back pain without sciatica (Primary Dx); Anxiety; Primary hypertension; Screening, lipid; Need for hepatitis B screening test; Need for hepatitis C screening test; Screening for thyroid disorder; Encounter for screening mammogram for malignant neoplasm of breast 12/25/2024 Telephone [facility] Virtual Care [address] [place] [address] Randi Downing Virtual Care Appointment 12/25/2024 Nurse Triage [facility] Primary Care at [facility] - [address] [place] [phone] Michelle Ureña MD from Last 3 [...] much relief Continue present plan and current medication(s)--[place] Assessment & Plan (07/23/2024 7:43 PM CDT): Stable, but not improved She has failed gabapentinoids and duloxetine She has difficulty doing her daily activities and medication is not giving her as much relief Continue present plan and current medication(s)--[place] Assessment & Plan (01/03/2024 10:10 AM CDT): Stable, but not improved She has failed gabapentinoids and duloxetine She has difficulty doing her daily activities and medication is not giving her as much relief Will increase dose of hydrocodone/acetaminophen Continue present plan and current medication(s)--[place] at higher doser Resolved Problems Problem Noted [...] on file 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 Testing performed by: [facility], [address] [place] [address] Blood 01/01/2025 4:47 PM CDT 01/01/2025 4:47 PM CDT Michelle Ureña MD LAB [place]LOOD [place] [address] [address] Department [place] [address] * Thyroid Function Dexter (01/01/2025 4:47 PM CDT) TSH 0.43 0.30 - 4.20 mcIUnit/mL Comment:Testing performed by : [facility], [address] [place] [address] Blood 01/01/2025 4:47 PM CDT 01/01/2025 4:47 PM CDT Michelle Ureña MD LAB BLOOD ORDERABLES Fi nal Result Performing Organization Address [facility] Co de Phone Number REINIER MARTIN [address] [address] Department [place] [address] * Hepatitis C antibody Blood (01/01/2025 4:47 [...] RAL ORDERABLES Final Result Performing Organization Address [facility] Co de Phone Number REINIER MARTIN [address] [address] Department [facility] [place], [place] [id number] * Hepatitis B core antibody, total Blood (01/01/2025 4:47 PM CDT) Hep B core IgG/IgM Nonreactive Nonreactive Comment:Testing performed by : [facility], [address] [facility] [place] [address] Blood 01/01/2025 4:47 PM CDT 01/01/2025 7:44 PM CDT Michelle Ureña MD LAB MICROBIOLOGY - GENE RAL ORDERABLES Final Result Performing Organization Address [facility]/ZIP Co de Phone Number REINIER MARTIN [address] [address] Department of [facility] [place], [place] [id number] * Vitamin D 25 hydroxy (01/01/2025 4:47 PM CDT) Vitamin D 25-OH 44 30 - 80 ng/mL Blood 01/01/2025 4:47 PM CDT 01/01/2025 9:03 PM CDT Michelle Ureña MD LAB BLOOD ORDERABLES Fi nal Result Performing Organization Address [facility] Co de Phone Number RAVIMAXIMO [phone] [address] [facility] [place] [address] * Hepatitis B surface antibody (immune status) Blood (01/01/2025 4:47 PM CDT) Pathologist [facility] HBsAb (immune status) Nonreactive Comment: Interpretive Data [...] RAL ORDERABLES Final Result Performing Organization Address [facility] Co de Phone Number RAVIMAXIMO [phone] [address] [place] [address] * Hepatitis B Surface Antigen Blood (01/01/2025 4:47 PM CDT) Pathologist [facility] HepBsAg Nonreactive Nonreactive Blood 01/01/2025 4:47 PM CDT 01/01/2025 9:03 PM CDT Michelle Ureña MD LAB MICROBIOLOGY - GENE RAL ORDERABLES Final Result Performing Organization Address [facility] Co de Phone Number REINIER [address] [address] Department [place] [address] * (ABNORMAL) CBC without differential (01/01/2025 4:47 PM CDT) [facility] WBC 7.1 3.8 - 9.9 K/cumm Comment:Testing performed by : [facility] [address] [place] [address] Hgb 12.5 11.9 - 15.5 g/dL CERNER CH Comment:Testing performed by : [facility] [address] [place] [address] Hct 38.2 35.6 - 45.5 % CERNER CH Comment:Testing performed by : [facility] [address] [place] [address] Plt 443(H) 150 - 400 K/cumm CERNER CH Comment:Testing performed by : [facility] [place] [address] MPV 9.2 9.1 - 12.3 fL CERNER CH Comment:Testing performed by : [facility] [address] [place] [address] RBC 4.15 3.90 - 5.20 M/cumm CERNER CH Comment:Testing performed by : [facility] [place] [address] MCV 92.0 81.3 - 96.4 fL CERNER CH Comment:Testing performed by : [facility] [address] [place] [address] MCH 30.1 27.1 - 33.3 pg CERNER CH Comment:Testing performed by : [facility] [address] [place] [address] MCHC 32.7 32.3 - 35.7 g/dL CERNER CH Comment:Testing performed by : [facility] [place] [address] RDW CV 13.5 11.1 - 14.9 % CERNER CH Comment:Testing performed by : [facility] [address] [place] [address] RDW SD 45.6 35.7 - 48.1 fL CERNER CH Comment:Testing performed by : [facility] [address] [place] [address] NRBC abs 0.00 0.00 - 0.01 K/cumm CERNER CH Comment:Testing performed by : [facility], [address], [place] [address] Blood 01/01/2025 4:47 PM CDT 01/01/2025 4:47 PM CDT Michelle Ureña MD LAB BLOOD ORDERABLES Fi nal Result Performing Organization Address [facility] Co de Phone Number [facility] [address] [address] Department [place] [address] * (ABNORMAL) Vitamin B12 (01/01/2025 4:47 PM CDT) Vitamin B12 181(L) 230 - 1,250 pg/mL Blood 01/01/2025 4:47 PM CDT 01/01/2025 9:03 PM CDT Michelle Ureña MD LAB BLOOD ORDERABLES Fi nal Result Performing Organization Address [facility] de Phone Number [facility] [address] [address] Department of [place] [address] * (ABNORMAL) Lipid panel (01/01/2025 4:47 PM [...] last revised on 2018. Testing performed by: [facility], [address], [place] [address] Triglycerides 318(H) <=149 mg/dL REINIER MARTIN Comment: [...] last revised on 2018. Testing performed by: [facility], [address] [address] HDL 55 >=40 mg/dL REINIER Comment: Interpretive [...] last revised on 2018. Testing performed by: [facility], [address] [address] LDL, calculated 143(H) <=129 mg/dL REINIER Comment: [...] last revised on 2024. Testing performed [facility]: [facility] [address], [place] [address] Non-HDL [...] last revised on 2018. Testing performed by: [facility] [address], [place] [address] Chol/HDL ratio 5 CERNER Comment:Testing performed by : [facility] [address], [place] [address] Blood 01/01/2025 4:47 PM CDT 01/01/2025 4:47 PM CDT us Michelle Ureña MD LAB BLOOD ORDERABLES Fi nal Result [facility] [address] [address] Department of Laboratories [place], [place] [id number] * (ABNORMAL) Comprehensive metabolic panel (01/01/2025 4:47 PM CDT) Sodium 137 135 - 145 mmol/L Comment:Testing performed by : [facility] [address], [place] [address] Potassium, pl 4.4 3.3 - 4.9 mmol/L CERMAXIMO Comment:Testing performed by : [facility] [address], [place] [address] Chloride 100 97 - 110 mmol/L CERMAXIMO Comment:Testing performed by : [facility] [address], [place] [address] CO2 25 22 - 32 mmol/L CERMAXIMO CH Comment:Testing performed by : [facility] [address], [place] [address] Anion gap 12 2 - 15 mmol/L CERNER CH Comment:Testing performed by : [facility] [place] [address] BUN 33(H) 6 - 25 mg/dL CERNER CH Comment:Testing performed by : [facility] [place] [address] Creatinine 0.95 0.60 - 1.10 mg/dL CERNER CH Comment:Testing performed by : [facility] [place] [address] Glucose 82 70 - 199 mg/dL CERNER [...] was last revised 2022. Testing performed by: [facility] [place] [address] Calcium 10.3 8.5 - 10.3 mg/dL CERNER CH Comment:Testing performed by : [facility] [place] [address] Bilirubin, total 0.3 0.1 - 1.2 mg/dL CERNER CH Comment:Testing performed by : [facility] [place] [address] Protein, pl 8.2 6.5 - 8.5 g/dL CERNER CH Comment:Testing performed by : [facility] [address] [place] [address] Albumin 4.5 3.5 - 5.0 g/dL CERNER CH Comment:Testing performed by : [facility] [place] [address] Alk phos 64 40 - 130 Units/L CERNER CH Comment:Testing performed by : [facility] [address], [place] [address] ALT 24 7 - 45 Units/L CERNER CH Comment:Testing performed by : [facility] [place] [address] AST 25 10 - 45 Units/L CERNER CH Comment:Testing performed by : [facility], [facility], [place] [address] Blood 01/01/2025 4:47 PM CDT 01/01/2025 4:47 PM CDT us Michelle Ureña MD LAB BLOOD ORDERABLES Fi nal Result REINIER [address] [address] Department [place] [address] * COLONOSCOPY REPORT (01/08/2013) Anatomical Region Laterality Modality Other Narrative 01/08/2013 Ordered by an unspecified provider. us Historical Provider GI PROCEDURE ORDERABLES F inal Result from Last 3 Months or Most Recently Relevant to Health Maintenance Insurance [facility] [employer] [facility] [employer] OOS Care Teams Security Associate Relationship Specialty Start Date End Date Michelle U[place]ña [place] [address] [facility] [address] [place] [address] PCP - General Internal Medicine 06/02/23
--- OUTSIDE RECORDS SUMMARY | 2025-03-19 19:02 | XMS_ITS | Clinical Summary ---
Author Organization [facility] [employer] Address [address] [place] [address] Care Team Providers Care Director Equipment Name Role Phone Otto Astudillo Md, MD Primary Care Provider Unavailable Source Comments [facility] [employer],non-owned Affiliates and Associated Physician Practices is amultiple site organization consisting of ambulatory clinics and hospital sitesin [place], [place], [place] and [place]. This disclosure is being madepursuant to the Care Everywhere program and may not contain all information available regarding this patient. Last updated 18.[facility] [employer] Allergies No known active allergies Medications * [...] on file Legal Sex Female 12:56 PM [employer] Gender Identity Not on file Sexual Orientation Not on file Last Filed Vital Signs Vital Sign Reading Time Taken Comments Blood Pressure 104/63 11/13/2018 12:50 PM [employer] Pulse 83 11/13/2018 12:50 PM [employer] Temperature 37.6 C (99.7 F) 11/13/2018 12:50 PM [employer] Respiratory Rate 18 11/13/2018 12:50 PM [employer] Oxygen Saturation 98% 11/13/2018 12:50 PM [employer] Inhaled Oxygen Concentration - - Weight 77.1 [...] this topic Medical Devices Implanted Type Area Dental Technician Device Identifier Shelf Expiration Date Model / Serial / Lot Stem Tib 55mm 18mm Prfx Mtphsl Kn Implanted:Qty: 1 on 02/06/2017 by Javon Huerta MD at [facility] [employer] 09/21/2026 [id number] / / [id number] Legion Por Pettit Tib Base R Sz 5 Implanted:Qty: 1 on 02/06/2017 by Javon Huerta MD at [facility] [employer] 08/15/2023 [id number] / / [id number] Ins Tib 5-6 9mm Kn Xlpe Dsh Legion Implanted:Qty: 1 on 02/06/2017 by Javon Huerta MD at [facility] Right: Knee [employer] 06/26/2026 [id number] / / [id number] Cmpnt Fem Kn Rt 6 Crcte Rtn Legion Pettit Implanted:Qty: 1 on 02/06/2017 by Javon Huerta MD at [facility] Right: Knee [employer] 08/20/2026 [id number] / / [id number] Screw Bsplt 30mm 6.5mm Gns2 Kn Tib Por Implanted:Qty: 2 on 02/06/2017 by Javon Huerta MD at [facility] Right: Knee [employer] 12/04/2026 [id number] / / [id number] Screw Bsplt 15mm 6.5mm Gns2 Kn Tib Por Implanted:Qty: 1 on 02/06/2017 by Javon Huerta MD at [facility] Right: Knee [employer] 11/28/2025 [id number] / / [id number] Screw Bsplt 20mm 6.5mm Gns2 Kn Tib Por Implanted:Qty: 1 on 02/06/2017 by Javon Huerta MD at [facility] Right: Knee [employer] 12/04/2026 [id number] / / [id number] Andrew Basic Tee Excludes Agc Kn Implanted:Qty: 1 on 02/06/2017 by Javon Huerta MD at [facility] [employer] BILL ONLY BASIC TEE EXCLUDES AGC KN SNOR / / Shell Actb 52mm Hip 3 Hl Poly R3 Std Implanted:Qty: 1 on 11/12/2018 by Javon Huerta MD at [facility] Left: Hip [employer] 09/18/2028 [id number] / / [id number] Description:R3 HOLE ACET SHE LL 52MM--11/16 LG Screw 6.5mm 40mm Hip Actb Canc Sphrcl Implanted:Qty: 1 on 11/12/2018 by Javon Huerta MD at [facility] Left: Hip [employer] 07/09/2028 [id number] / / [id number] Description:REF SPHER HEAD S CREW 40MM--11/16 LG Liner Actb R3 20d 52mm 36mm Xlpe Poly Implanted:Qty: 1 on 11/12/2018 by Javon Huerta MD at [facility] Left: Hip [employer] 09/15/2028 [id number] / / [id number] Description:R3 20 DEG XLPE A CET LNR 36MM X 52MM--11/16 LG Polarstem Stem Stdti/Pettit 3 Non-Tee Implanted:Qty: 1 on 11/12/2018 by Javon Huerta MD at [facility] Left: Hip [employer] 08/13/2025 [id number] / / [id number] Description:Stem standars wi th Ti/PETTIT Head Fem +4mm 09/28 Tpr 36mm Hip Oxnm Implanted:Qty: 1 on 11/12/2018 by Javon Huerta MD at [facility] Left: Hip [employer] 09/15/2028 [id number] / / [id number] Description:OXINIUM FEM HD 1 11/29 36K MM M/+4--11/16 LG Andrew H1 Total Hip Implanted:Qty: 1 on 11/12/2018 by Javon Huerta MD at [facility] Left: Hip [employer] TOTAL HIP H1 / / Andrew Oxinium Upchrg Implanted:Qty: 1 on 11/12/2018 by Javon Huerta MD at [facility] Left: Hip [employer] OXINIUM UPCHG SNORTHO BILL ONLY / / Explanted Type Area Dental Technician Device Identifier Shelf Expiration Date Model / Serial / Lot Screw Bsplt 25mm 6.5mm Gns2 Kn Tib Por Explanted:Qty: 1 on 02/06/2017 at [facility] Right: Knee [employer] 06/25/2026 [id number] / / [id number] Procedures Procedure Name Priority Date/Time Associated Diagnosis Comments BASIC METABOLIC PANEL (CALCIUM TOTAL) AM Draw 11/13/2018 5:24 AM [employer] from Last 3 Months or Most Recently Relevant to Health Maintenance Results * (ABNORMAL) BASIC METABOLIC PANEL (CALCIUM TOTAL) (11/13/2018 5:24 AM [facility]) Glucose 119(H) 74 - 106 mg/dL 11/13/2018 5:56 AM [facility] Sodium 142 136 - 145 mmol/L 11/13/2018 5:56 AM [facility] Potassium 3.6 3.5 - 5.1 mmol/L 11/13/2018 5:56 AM [facility] Chloride 107 98 - 107 mmol/L 11/13/2018 5:56 AM [facility] CO2 25 22 - 31 mmol/L 11/13/2018 5:56 AM [facility] Calcium 7.4(L) 8.5 - 10.1 mg/dL 11/13/2018 5:56 AM [facility] Anion Gap 10 8 - 16 mmol/L 11/13/2018 5:56 AM [facility] BUN 13 7 - 21 mg/dL 11/13/2018 5:56 AM [facility] Creatinine 0.64 0.50 - 1.30 mg/dL 11/13/2018 5:56 AM [facility] eGFR by MDRD >60 >60 mL/min/1.7 3m2 11/13/2018 5:56 AM [facility] eGFR by MDRD >60 >60 mL/min/1.7 3m2 11/13/2018 5:56 AM [facility] Blood BLOOD SPECIMEN / Unknown Lab Venipuncture / Unknown 11/13/2018 5:24 AM [employer] 11/13/2018 5:34 AM [facility] Vazquez Hall MD LAB - CHEMISTRY ORDERABLES Fin al Result [facility] [address] [place], [place] [id number] from Last 3 Months or Most Recently Relevant to Health Maintenance Insurance ANTHEM ANTHEM Advance Directives * Full Code (Latest Code Status on File) Date Activated Date Inactivated Comments 11/12/2018 11:11 AM 11/13/2018 3:37 PM * Full Code Date Activated Date Inactivated Comments 02/06/2017 11:50 AM 02/09/2017 5:58 PM Care Teams Director Equipment Relationship Specialty Start Date End Date Otto Astudillo MD, MD PCP - General 05/09/22
--- OUTSIDE RECORDS SUMMARY | 2025-03-19 19:02 | XMS_ITS | CONTINUITY OF CARE DOCUMENT ---
Author Name aretha carias Address Unknown Organization [facility] Address [address] [place] [address] Phone [phone] Care Team Providers Care In Home Caregiver Name Role Phone Munir ESTEVEZ, Chelsey Unavailable AYLIN ESTEVEZ, DAVINA Unavailable INSURANCE PROVIDERS Payer name Policy type / Coverage type [place] red green party ID [employer] Medicaid [id number]
[2025-03-19 19:03] LABS: Basophils Absolute Auto 0.1 K/mm3 (0.0-0.1); Basophils Percent Auto 0.7 % (0.2-1.2); Eosinophils Absolute Auto 0.1 K/mm3 (0-0.3); Eosinophils Percent Auto 0.8 % (0-4.4); Hematocrit 41.1 % (37.0-47.0); Hemoglobin 13.1 g/dL (12.0-15.0); Immature Granulocyte Absolute 0.02 K/mm3 (0.00-0.031); Immature Granulocyte Percent A 0.3 % (0-0.5); Lymphocytes Absolute Auto 1.58 K/mm3 (0.9-3.2); Lymphocytes Percent Auto 21.5 % (18.3-44.2); Mean Corpuscular HGB Conc 31.9 g/dl (32-36); Mean Corpuscular Hemoglobin 29.4 pg (26-34); Mean Corpuscular Volume 92.2 fl (80-100); Mean Platelet Volume 9.1 fl (7.4-10.4); Monocytes Absolute Auto 0.7 K/mm3 (0.1-0.6); Monocytes Percent Auto 9.4 % (2.6-8.5); Neutrophils Percent Auto 67.3 % (45.5-73.1); Platelet Count Result 372 k/mm3 (150-375); Red Blood Count 4.46 M/mm3 (4.2-5.4); Red Cell Distribution Width 13.3 % (11.5-14.5); White Blood Count 7.4 K/mm3 (4.5-10.0)
[2025-03-19 19:13] LABS: Alanine Aminotransferase 30 U/L (6-35); Albumin Level 4.6 g/dL (3.5-5.1); Alkaline Phosphatase 59 U/L (38-126); Anion Gap 11 mmol/L (4-12); Aspartate Amino Transferase 37 U/L (14-36); Bilirubin,Total 0.4 mg/dL (0.2-1.3); Blood Urea Nitrogen 27 mg/dL (7-17); Calcium 9.4 mg/dL (8.4-10.2); Carbon Dioxide 23 mmol/L (22-30); Chloride 106 mmol/L (98-107); Estimated CRCL calculation 51 ml/min; Estimated Glomerular Filt Rate 48; Glucose 101 mg/dL (65-110); Lipase 350 U/L (23-300); Potassium 3.9 mmol/L (3.4-5.0); Sodium 140 mmol/L (137-145); Total Protein 8.2 g/dL (6.3-8.2)
--- NOTE | 2025-03-19 19:18 | PC.NURSE ---
Pt attempted to give urine sample at this time and was unavailable, Will use call light when she can provide a sample.
--- NOTE | 2025-03-19 19:19 | PC.NURSE ---
Pt attempted to give urine sample. pt was not able to urinate at this time.
--- NOTE | 2025-03-19 19:31 | ED.ABDPAIN ---
HPI - Abdominal Pain General Chief Complaint: Abdominal Pain Stated Complaint: abd pain Time Seen by Provider: 03/19/25 18:54 Source: patient Mode of arrival: ambulatory Limitations: no limitations History of Present Illness HPI narrative: This is a 59 year old female that presents to the ER for left lower quadrant abdominal pain. Ongoing over the last 5 days. Reports history of diverticulitis. Her pain feels similar. Reports subjective fevers, vomiting, diarrhea. Related Data Home Medications ?Medication ?Instructions ?Recorded ?Confirmed ?Last Taken ?Type enalapril maleate 10 mg tablet 10 mg PO DAILY 02/02/23 02/17/23 Unknown History hydrochlorothiazide 25 mg tablet 25 mg PO DAILY 02/02/23 02/17/23 Unknown History Allergies Allergy/AdvReac Type Severity Reaction Status Date / Time escitalopram (From Lexapro) Allergy Rash Verified 03/28/23 15:25 Review of Systems Review of Systems: CONSTITUTIONAL: Denies fever GASTROINTESTINAL: Reports abdominal pain, nausea, vomiting, and diarrhea. All systems reviewed & are unremarkable except as noted in HPI and below PMFSH Past Medical History Medical History Adenomatous colon polyp Anxiety disorder Chronic low back pain HTN (hypertension) Hyperlipidemia Lumbar degenerative disc disease Osteoarthritis Overweight Peripheral neuropathy Surgical History Surgical History History of appendectomy History of arthroplasty of right knee History of shoulder surgery History of total hip arthroplasty Family History Family History Mother Hypertension Cerebrovascular accident Diabetes mellitus Depression Father Diabetes mellitus Hypertension Sibling Thyroid cancer Social History Social History Smoking status: Never smoker Alcohol intake: current Alcohol use details: occasional Substance use: never Substance use type: does not use Lack of Transportation: No Lack of Food: Never True Current Housing: I Have Housing Concerned About Future Housing: No Difficulty Paying Gas/Electric Bills: No Difficulty Paying for Meds: No Currently Unemployed: No Education: High School Diploma/GED Difficulty w/ Childcare or Family Care: No Living arrangements: with family Occupation/Education: occupation 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 HEAD: Normocephalic, atraumatic. EYES: EOMI. CHEST: Clear to auscultation. No respiratory distress. No wheezes rales or rhonchi HEART: Regular rate and rhythm. No murmur heard. Normal peripheral pulses. ABDOMEN: Soft, nondistended, normal active bowel sounds. Tender to palpation in left lower quadrant, without guarding EXTREMITIES: Normal range of motion. No edema. SKIN: Warm, dry, no rash. NEURO: No focal deficits. Alert and oriented x3. PSYCH: Normal mood and affect Course Course Emergency Course: Patient updated on her workup and agrees with plan of care Vital Signs Vital signs: Vital Signs Temperature 97.5 F L 03/19/25 18:43 Pulse Rate 82 03/19/25 18:43 Respiratory Rate 14 03/19/25 18:43 Blood Pressure 110/78 03/19/25 18:43 Pulse Oximetry 99 03/19/25 18:43 Temperature 97.5 F L 03/19/25 18:43 Pulse Rate 82 03/19/25 18:43 Respiratory Rate 14 03/19/25 18:43 Blood Pressure 110/78 03/19/25 18:43 Pulse Oximetry 99 03/19/25 18:43 MDM - Abdominal Pain MDM Narrative Medical decision making narrative: Patient presents to the ER for left lower quadrant abdominal pain. Ongoing over the last 5 days. History of diverticulitis. She is afebrile and nontoxic appearing. Her vitals are stable. Cbc without leukocytosis. Kidney function appears around baseline. CT abdomen pelvis shows slight increased vascularity around the colon. I believe her symptoms, exam and imaging seem consistent with diverticulitis. Patient will be started on oral antibiotics. She is to follow up with her primary provider. She was given warnings to return to the ER Differential Diagnosis Differential diagnosis: Likely calculus of kidney, constipation and diverticulitis Lab Data Attestation: I reviewed the patient's lab results. 03/19/25 18:56 03/19/25 18:56 Labs: Lab Results 03/19/25 Range/Units 18:56 WBC 7.4 (4.5-10.0) K/mm3 RBC 4.46 (4.2-5.4) M/mm3 Hgb 13.1 (12.0-15.0) g/dL Hct 41.1 (37.0-47.0) % MCV 92.2 (80-100) fl MCH 29.4 (26-34) pg MCHC 31.9 L (32-36) g/dl RDW 13.3 (11.5-14.5) % Plt Count 372 (150-375) k/mm3 MPV 9.1 (7.4-10.4) fl Immature Gran % (Auto) 0.3 (0-0.5) % Neut % (Auto) 67.3 (45.5-73.1) % Lymph % (Auto) 21.5 (18.3-44.2) % [place] % (Auto) 9.4 H (2.6-8.5) % Eos % (Auto) 0.8 (0-4.4) % Baso % (Auto) 0.7 (0.2-1.2) % Lymph # (Auto) 1.58 (0.9-3.2) K/mm3 [place] # (Auto) 0.7 H (0.1-0.6) K/mm3 Eos # (Auto) 0.1 (0-0.3) K/mm3 Baso # (Auto) 0.1 (0.0-0.1) K/mm3 Abs Immat Gran (auto) 0.02 (0.00-0.031) K/mm3 Absolute Neuts (auto) 5.0 (1.3-6.7) K/mm3 Absolute Nucleated RBC 0.000 (0.0-0.012) K/mm3 Nucleated RBC % 0.0 (0.0-0.2) % Sodium 140 (137-145) mmol/L Potassium 3.9 (3.4-5.0) mmol/L Chloride 106 (98-107) mmol/L Carbon Dioxide 23 (22-30) mmol/L Anion Gap 11 (4-12) mmol/L BUN 27 H (7-17) mg/dL Creatinine 1.15 H (0.7-1.0) mg/dL Estim Creat Clear Calc 51 ml/min Estimated GFR 48 L (59 - ) Glucose 101 (65-110) mg/dL Calcium 9.4 (8.4-10.2) mg/dL Total Bilirubin 0.4 (0.2-1.3) mg/dL AST 37 H (14-36) U/L ALT 30 (6-35) U/L Alkaline Phosphatase 59 (38-126) U/L Total Protein 8.2 (6.3-8.2) g/dL Albumin 4.6 (3.5-5.1) g/dL Lipase 350 H (23-300) U/L Imaging Data Radiologist's impression: ITS Impressions Abdomen/Pelvis CT 03/19/25 19:52 IMPRESSION: 1. No evidence of appendicitis, diverticulitis or intestinal obstruction. 2. Slight increased vascularity around the colon. Possibility of inflammatory bowel disease should be considered. 3. Thickened wall of the urinary bladder. Evaluation for cystitis is advised. Critical Care Time Critical Care Time Critical Care Time: No Discharge Plan Discharge Clinical Impression: Diverticulitis Patient Disposition: Home Condition: Stable Instructions: Diverticulitis (ED), Diverticulitis Diet (ED) Additional Instructions: Return to the ER if you experience fever, abdominal pain with nausea and vomiting, you are unable to keep down liquids or solids, blood in the stool, or any other symptoms that are concerning to you Remain well hydrated. Take oral antibiotics as prescribed Follow up with your primary care doctor Patient Language: [place] Prescriptions: New amoxicillin-pot clavulanate 875-125 mg tablet 1 tablet PO Q12H 10 Days Qty: 20 0RF No Action trazodone 50 mg tablet 50 mg PO QHS PRN (Reason: insomnia) Qty: 60 0RF Rx Instructions: Take one to two tablets po qhs prn for insomnia celecoxib [Celebrex] 200 mg capsule 200 mg PO DAILY Qty: 30 3RF enalapril maleate 10 mg tablet 10 mg PO DAILY Rx Instructions: TAKE 1 TABLET BY MOUTH EVERY DAY hydrochlorothiazide 25 mg tablet 25 mg PO DAILY Rx Instructions: TAKE 1 TABLET BY MOUTH EVERY DAY ergocalciferol (vitamin D2) 1,250 mcg (50,000 unit) capsule 1,250 mcg PO WEEKLY Qty: 12 1RF cyanocobalamin (vitamin B-12) 1,000 mcg capsule 1,000 mcg PO BID Qty: 60 3RF hydroxyzine HCl 50 mg tablet 50 mg PO QPM Qty: 30 0RF hydrocodone-acetaminophen 5-325 mg tablet 1 tablet PO Q8H PRN (Reason: pain) Qty: 70 0RF alprazolam [Xanax] 0.5 mg tablet 0.5 mg PO TID PRN (Reason: anxiety) Qty: 45 0RF Follow-up/Referrals: UNKNOWN,DOCTOR [Primary Care Provider] -
[2025-03-19] MEDS: ONDANSETRON INJ 4 MG/2 ML VIAL IV PUSH (19:34)
[2025-03-19] MEDS: MORPHINE SULFATE (*CRX) 4 MG/ML INJ IV PUSH (19:34)
--- NOTE | 2025-03-19 19:39 | PC.NURSE ---
Pt to CT at this time.
[2025-03-19 20:46] VITALS: BP 105/77; PULSE 55; RESP 14; O2SAT 98
== END 2025-03-19 20:47 | disposition home or self-care (01) ==
PROVIDERS: Emergency Medicine; Emergency Provider Physician Assistant
DX: K57.92 Diverticulitis of intestine, part unspecified, without perforation or abscess without bleeding (principal); I10 Essential (primary) hypertension; E78.5 Hyperlipidemia, unspecified; M51.369 Other intervertebral disc degeneration, lumbar region without mention of lumbar back pain or lower extremity pain; G62.9 Polyneuropathy, unspecified; F41.9 Anxiety disorder, unspecified; Z96.651 Presence of right artificial knee joint; Z96.649 Presence of unspecified artificial hip joint; Z86.0101 Personal history of adenomatous and serrated colon polyps; Z79.899 Other long term (current) drug therapy; R93.41 Abnormal radiologic findings on diagnostic imaging of renal pelvis, ureter, or bladder
CPT/HCPCS: 36415; 74177; 80053; 83690; 85025; 96374; 96375; 99284; J2270; J2405; Q9967